=== PATIENT | female | born 1985 | race Two or more races ===

== ENCOUNTER 2020-08-24 13:56 | Outpatient (REF) | payer OTHER, SELFPAY | END 2020-08-24 13:57 | disposition home or self-care (01) | LOC: HO.LAB 13:56 | PROVIDERS: Visit Provider Internal Medicine | DX: Z20.822 Contact with and (suspected) exposure to COVID-19 (principal) | CPT/HCPCS: 36415; C9803; U0003; U0005 ==

== ENCOUNTER 2020-09-02 07:01 | Outpatient (REF) | payer OTHER, SELFPAY ==
[2020-09-02 07:44] LABS: Eos%MD 2.1 %; Hematocrit 33.4 % (37-47); Hemoglobin 9.9 g/dl (12.0-16.0); IG%MD 0.4 %; Lymph%MD 38.1 %; Mean Corpuscular HGB Conc 29.6 g/dl (31.0-35.0); Mean Corpuscular Hemoglobin 22.8 pg (27.0-33.0); Mean Corpuscular Volume 76.8 fL (80-98); Mean Platelet Volume 10.4 fL (9.4-12.3); Neut%MD 48.4 %; Platelet Count 421 X10*3/uL (160-400); Red Blood Count 4.35 X10*6/uL (4.20-5.50); Red Cell Distribution Width 15.9 % (11.0-16.0); White Blood Count 5.2 X10*3/uL (4.8-10.8)
[2020-09-02 08:06] LABS: Alanine Aminotransferase 20 U/L (0-31); Albumin Level 4.1 g/dL (3.5-5.0); Alkaline Phosphatase 66 U/L (39-117); Anion Gap 10 (12-20); Aspartate Amino Transferase 18 U/L (5-31); Bilirubin Total 0.7 mg/dL (0.0-1.0); Blood Urea Nitrogen 13 mg/dL (9-16); Calcium 9.1 mg/dL (8.4-10.2); Carbon Dioxide 28 mmol/L (22-29); Chloride 105 mmol/L (96-108); Cholesterol 224 mg/dL; Estimated Glomerular Filt Rate > 60; Glucose Fasting 102 mg/dL (60-99); HDL Cholesterol 52 mg/dL; Iron 20 mcg/dL (30-160); LDL Cholesterol Calculated 146 mg/dl; Percent Iron Saturation 4 % (15-50); Potassium 4.4 mmol/L (3.3-5.1); Sodium 139 mmol/L (135-145); Total Iron Binding Capacity 454 mcg/dL (228-428); Total Protein 7.5 g/dL (6.5-8.0); Triglycerides 130 mg/dL; Unsaturated Iron Binding 434 ug/dL
[2020-09-02 08:35] LABS: Band Neutrophils Percent 0 % (3-5); Basophils Abs Manual 0.1 X10*3/uL (0.0-0.3); Basophils Percent Manual 1 % (0-1); Eosinophils Absolute Manual 0.2 X10*3/UL (0.0-0.8); Eosinophils Percent Manual 3 % (0-4); Lymphocytes Absolute Manual 1.8 X10*3/uL (0.6-4.8); Lymphocytes Percent Manual 34 % (20-40); Monocytes Absolute Manual 0.3 X10*3/uL (0.0-1.2); Monocytes Percent Manual 6 % (2-11); Neutrophils Absolute Manual 2.9 X10*3/uL (2.2-7.9); Neutrophils Percent Manual 56 % (45-73)
[2020-09-02 08:37] LABS: Microcytosis 2+; RBC Morphology NOTED
[2020-09-02 08:38] LABS: Hypochromasia 1+; Platelet Estimate INCREASED (NORMAL); Platelet Morphology Comment NORMAL
[2020-09-07 13:01] LABS: Vitamin D 25-OH, D2 9 ng/mL; Vitamin D 25-OH, D3 6 ng/mL; Vitamin D 25-OH, Total 15 ng/mL (30-100)
== END 2020-09-02 07:02 | disposition home or self-care (01) ==
LOC: HO.LAB 07:01
PROVIDERS: PCP Internal Medicine; Visit Provider Internal Medicine
DX: D50.9 Iron deficiency anemia, unspecified (principal); E78.00 Pure hypercholesterolemia, unspecified; E55.9 Vitamin D deficiency, unspecified
CPT/HCPCS: 36415; 80053; 80061; 82306; 83540; 85007; 85027

== ENCOUNTER 2020-11-18 13:18 | Outpatient (REF) | payer OTHER, SELFPAY ==
--- NOTE | ~2020-11-18 | XR_ITS ---
EXAMINATION: XR KNEE, RIGHT CLINICAL INFORMATION: Pain. COMPARISON: None TECHNIQUE: AP, lateral and sunrise views of the right knee. FINDINGS: Bones and soft tissues are normal. No fracture or joint effusion. Alignment is anatomic. Joint spaces are well maintained. A small enthesophyte is seen arising from the upper pole of the patella. No abnormal soft tissue calcification. XR/XR knee RT 3V IMPRESSION: Normal right knee. EXAMINATION: XR KNEE, LEFT CLINICAL INFORMATION: Pain. COMPARISON: None TECHNIQUE: AP, lateral and sunrise views of the left knee. FINDINGS: Bones and soft tissues are normal. No fracture or joint effusion. Alignment is anatomic. Joint spaces are well maintained. A small enthesophyte is seen arising from the upper pole of the patella. No abnormal soft tissue calcification. IMPRESSION: Normal left knee.
--- NOTE | ~2020-11-18 | XR_ITS ---
EXAMINATION: XR KNEE, RIGHT CLINICAL INFORMATION: Pain. COMPARISON: None TECHNIQUE: AP, lateral and sunrise views of the right knee. FINDINGS: Bones and soft tissues are normal. No fracture or joint effusion. Alignment is anatomic. Joint spaces are well maintained. A small enthesophyte is seen arising from the upper pole of the patella. No abnormal soft tissue calcification. XR/XR knee LT 3V IMPRESSION: Normal right knee. EXAMINATION: XR KNEE, LEFT CLINICAL INFORMATION: Pain. COMPARISON: None TECHNIQUE: AP, lateral and sunrise views of the left knee. FINDINGS: Bones and soft tissues are normal. No fracture or joint effusion. Alignment is anatomic. Joint spaces are well maintained. A small enthesophyte is seen arising from the upper pole of the patella. No abnormal soft tissue calcification. IMPRESSION: Normal left knee.
== END 2020-11-18 13:19 | disposition home or self-care (01) ==
LOC: HO.XRAY 13:18
PROVIDERS: PCP Internal Medicine; Visit Provider Student in an Organized Health Care Education/Training Program
DX: M79.7 Fibromyalgia (principal); M25.50 Pain in unspecified joint
CPT/HCPCS: 73562; 99212

== ENCOUNTER 2021-02-25 17:00 | Outpatient (RCR) | payer OTHER, SELFPAY ==
--- NOTE | 2021-01-07 18:50 | MHC.PT.EP ---
[facility] [place] Office [place] Office [place] Office [address] [phone] F: [phone] F: [phone] F: [phone] F: [phone] Physical Therapy Plan of Care Date of Evaluation: Date of Surgery: Diagnosis: B knee pain. Assessment: Pt is a 35 y/o female referred to PT for eval and treat fo B knee pain with presents with L > R knee knee dysfunction resulting in decreased tolerance and ability to perform ambulatory and standing tasks for duration, performing squatting activities and heavy HH chores secondary to decreased hip and knee strength, decreased L knee ROM as well as B genu valgum and genu recurvatum, TTP of medial L knee gait abnormality and pain. Pt is deemed an appropriate candidate to receive skilled PT in order to address her physical limitations to improve her functional ability. Frequency and Duration: The patient will be seen 2 x / wk x 5 wks. Short Term Goals: Initiate HEP. Improve baseline pain with activity to < 4/10; initial 6/10. Longterm Goals: Pt will report no difficulty standing 1 hour. Improve L knee Extension MMT to > 4+; initial 4/5. I with HEP. Treatment Plan: Modalities to reduce pain, spasms and effusion. Manual therapy to restore motion and function. Therapeutic exercise to improve strength and flexibility. Neuromuscular re-education for posture and balance. Therapeutic activities to return to functional activities of daily living. Electronically signed by: Renard Bateman PT. Please sign and return to therapist. Thank you for your referral.
--- NOTE | 2021-03-15 08:29 | MHC.PT.DC ---
[facility] [place] Office [place] Office [place] Office [address] Spike Almazan [address] [phone] F: [phone] F: [phone] F: [phone] F: [phone] Physical Therapy Discharge Report Diagnosis: B knee pain. Date of Surgery: Date of Evaluation: 01/07/21 Date of Discharge: 03/15/21 Treatments to Date: 8 Cancellations to Date: No Shows to Date: Discharge Status: Patient Elected to Stop Discharge Summary: pt participated in therapy though had poor home compliance and poor work modification. pt still persists with pain. pt elected to stop. Electronically signed by: Renard Bateman PT Please sign and return to therapist. Thank you for your referral.
== END 2021-03-15 08:35 | disposition home or self-care (01) ==
LOC: HO.PTCHIC 17:00
PROVIDERS: PCP Internal Medicine; Visit Provider Student in an Organized Health Care Education/Training Program
DX: M25.50 Pain in unspecified joint (principal)
CPT/HCPCS: 97110; 97140; 97161

== ENCOUNTER 2021-03-10 08:20 | Emergency (ER) | payer OTHER, SELFPAY ==
--- NOTE | ~2021-03-10 | XR_ITS ---
EXAMINATION: XR CHEST CLINICAL INFORMATION: Dyspnea COMPARISON: None TECHNIQUE: Frontal view of the chest was obtained. FINDINGS: No significant abnormality is noted involving the heart, lungs, mediastinum, bony thorax or soft tissues. XR/XR chest 1V IMPRESSION: Unremarkable examination.
[2021-03-10 08:31] VITALS: BP 107/65; PULSE 81; RESP 14; O2SAT 100; BMI 39.7
--- NOTE | 2021-03-10 09:05 | ECG_ITS ---
Test Reason : CP Blood Pressure : / mmHG Vent. Rate : 072 BPM Atrial Rate : 072 BPM P-R Int : 124 ms QRS Dur : 076 ms QT Int : 394 ms P-R-T Axes : 020 034 006 degrees QTc Int : 431 ms Normal sinus rhythm Normal ECG No previous ECGs available Referred By: Mansi Marquis Electronically Signed By:TIFFANIE CHI
--- NOTE | 2021-03-10 09:06 | ED_ITS ---
HPI - Chest Pain General Chief Complaint: Chest Pain Stated Complaint: chest pain Time Seen by Provider: 03/10/21 09:05 Source: patient Mode of arrival: ambulatory Limitations: no limitations History of Present Illness MD complaint: chest heaviness Onset (ago): day(s) (2) Timing of current episode: constant Prior episodes: Yes Onset: during rest Pain location: substernal Pain radiation: none Severity: moderate Quality: heaviness Relieving factors: nothing Exacerbating factors: palpation Associated symptoms: dyspnea Treatment prior to arrival: none Related Data Home Medications Medication Instructions Recorded Confirmed ferrous sulfate 325 mg (65 mg 325 mg PO DAILY 04/02/20 09/07/20 iron) tablet ibuprofen 800 mg tablet 800 mg PO Q8H 04/02/20 09/07/20 meclizine 25 mg tablet mg PO 04/02/20 09/07/20 Previous Rx's Medication Instructions Recorded ergocalciferol (vitamin D2) 1,250 1,250 mcg PO QWEEK 30 Days #5 cap 09/07/20 mcg (50,000 unit) capsule gabapentin 100 mg capsule 100 mg PO BEDTIME #30 cap 11/18/20 cyclobenzaprine 10 mg tablet 10 mg PO TID PRN #14 tab 03/10/21 ferrous sulfate 325 mg (65 mg 325 mg PO DAILY #30 tab 03/10/21 iron) tablet Allergies Allergy/AdvReac Type Severity Reaction Status Date / Time No Known Allergies Allergy Verified 11/18/20 13:23 [No Known Allergies*] Review of Systems Review of Systems: Constitutional : No Weight loss, No Fever, No Chills ENT/Mouth : No sore throat, No Rhinorrhea Eyes: No Eye Pain, No Swelling Cardiovascular : pos Chest Pain, pos SOB, no Dyspnea on Exertion, No Orthopnea, No Edema, No Palpitations Respiratory : No Cough, No Sputum Gastrointestinal : no Nausea, No Vomiting, No Diarrhea, No abdominal Pain, No Hematochezia, No Melena Genitourinary : No Dysuria, No Urinary Frequency Musculoskeletal : No joint pain, No Myalgias, No Joint Swelling Skin : No Skin Lesions, No rash Neuro : No Weakness, No Numbness, No Dizziness, No Headache Psych : No Anxiety/Panic, No Depression Heme/Lymph: No Bruising, No Lymphadenopathy Endocrine : No Polyuria, No Polydipsia All other systems reviewed and are negative [facility] Past Medical History Attestation statement: The following information was validated with the patient. Medical History Hypovitaminosis D Iron deficiency anemia Polyarthralgia Pure hypercholesterolemia Vertigo Surgical History History of D&C Hx laparoscopic cholecystectomy Family History Family History Father No problems noted. Mother No problems noted. Maternal Grandmother Diabetes Maternal Grandfather Stomach cancer Maternal Uncle Renal cancer Social History Social History (Updated 03/10/21 @ 09:35 by Mansi Marquis DO) Patient Tobacco Use Status: Never used Tobacco Use of substances other than those prescribed or required for medical reasons: No Advance Directives: No Advance Directives Information Provided: No Patient : No Physical Exam Vital Signs: Vital Signs: Last Vital Signs Pulse 81 03/10/21 08:31 Resp 14 03/10/21 08:31 BP 107/65 03/10/21 08:31 Pulse Ox 100 03/10/21 08:31 Body Mass Index 39.7 Appearance: Alert. Oriented X3. No acute distress. Eyes: Pupils equal, round and reactive to light. ENT: Pharynx normal. Neck: Normal inspection. Neck supple. CVS: Normal heart rate and rhythm. Pulses normal. Chest: ttp along costochondral border Respiratory: No respiratory distress. Breath sounds normal. Abdomen: Soft and nontender. Skin: Skin warm and dry. Normal skin color. Normal skin turgor. Extremities: No lower extremity edema. No calf ttp Neuro: Oriented X 3. No motor deficit. No sensory deficit. Course Course Course Narrative: EKG, troponin negative, no acute findings likely CWP stable for DC chronic anemia will encourage Fe intake no need for transfusion, VS stable MDM - Chest Pain MDM Narrative Medical decision making narrative: 35 yo female with anemia here with chest pain that is reproduceable x 2 days, no ACS risk factors, PERC negative. Will obtain EKG, troponin x 1, COVID swab. Suspect MSK pain dispo per results and findings. Lab Data Result diagrams: 03/10/21 09:45 03/10/21 09:45 Labs: Lab Results 09/15/21 09/15/21 09/15/21 Range/Units 09:42 09:45 09:45 WBC 4.4 L (4.8-10.8) X10*3/uL RBC 3.61 L (4.20-5.50) X10*6/uL Hgb 8.2 L (12.0-16.0) g/dl Hct 27.9 L (37-47) % MCV 77.3 L (80-98) fL MCH 22.7 L (27.0-33.0) pg MCHC 29.4 L (31.0-35.0) g/dl RDW 16.4 H (11.0-16.0) % Plt Count 363 (160-400) X10*3/uL MPV 9.6 (9.4-12.3) fL Immature Gran % (Auto) 0.2 (0.0-0.4) % Neut % (Auto) 52.3 (45-73) % Lymph % (Auto) 35.4 (20-40) % [place] % (Auto) 8.7 (2-11) % Eos % (Auto) 2.3 (0-4) % Baso % (Auto) 1.1 (0-2) % Lymph # (Auto) 1.6 (1.2-4.9) X10*3/uL [place] # (Auto) 0.4 (0.1-1.2) X10*3/uL Eos # (Auto) 0.1 (0.0-0.4) X10*3/uL Baso # (Auto) 0.1 (0.0-0.2) X10*3/uL Abs Immat Gran (auto) 0.01 (0.00-0.03) X10*3/uL Absolute Neuts (auto) 2.3 (2.0-8.3) X10*3/uL Absolute Nucleated RBC 0.000 (0.0-0.012) X10*3/uL Nucleated RBC % (auto) 0.0 (0.0-0.2) /100WBC Sodium 139 (135-145) mmol/L Potassium 4.3 (3.3-5.1) mmol/L Chloride 106 (96-108) mmol/L Carbon Dioxide 28 (22-29) mmol/L Anion Gap 9 L (12-20) BUN 10 (9-16) mg/dL Creatinine 0.77 (0.5-1.4) mg/dL Estim Creat Clear Calc 99.2 Estimated GFR > 60 Random Glucose 115 (60-115) mg/dL Calcium 9.3 (8.4-10.2) mg/dL Magnesium 1.9 (1.6-2.6) mg/dL Total Bilirubin 0.7 (0.0-1.0) mg/dL Direct Bilirubin 0.2 (0.0-0.5) mg/dL AST 14 (5-31) U/L ALT 13 (0-31) U/L Alkaline Phosphatase 57 (39-117) U/L Total Protein 7.0 (6.5-8.0) g/dL Albumin 3.9 (3.5-5.0) g/dL Lipase 18 (8-78) U/L COVID-19 (CELENA) Negative (Negative) COVID-19 Clin Com See Note ECG Data ECG #1: Attestation: I personally reviewed and interpreted this ECG as follows: ECG interpretation date: 03/10/21 ECG interpretation time: 09:06 Interpretation: Rate: 72 Rhythm: NSR [place]: normal Normal P waves. Normal YUN. Normal QRS complex. ST T wave : normal no BRANDI qTC: normal prior studies: no acute ischemia The study has been interpreted contemporaneously by me. . Discharge Plan Discharge Clinical Impression: Atypical chest pain Iron deficiency anemia Qualifiers: Iron deficiency anemia type: inadequate dietary iron intake Qualified Code(s): D50.8 - Other iron deficiency anemias Patient Disposition: Home, Self-Care Instructions: Iron Rich Diet (ED), Iron Deficiency Anemia (ED), Chest Wall Pain (ED) Additional Instructions: return to ED for any worsening symptoms or concerns COVID NEGATIVE Prescriptions: New cyclobenzaprine 10 mg tablet 10 mg PO TID PRN (Reason: muscle spasm) Qty: 14 RF: 0 ferrous sulfate 325 mg (65 mg iron) tablet 325 mg PO DAILY Qty: 30 RF: 0 No Action ergocalciferol (vitamin D2) 1,250 mcg (50,000 unit) capsule 1,250 mcg PO QWEEK 30 Days Qty: 5 RF: 4 meclizine 25 mg tablet PO RF: 0 ibuprofen 800 mg tablet 800 mg PO Q8H RF: 0 ferrous sulfate 325 mg (65 mg iron) tablet 325 mg PO DAILY RF: 0 gabapentin 100 mg capsule 100 mg PO BEDTIME Qty: 30 RF: 1 Referrals: Carri Michaels MD [Primary Care Provider] - 2 days (REPEAT BLOOD WORK MONITOR ANEMIA) Stand Alone Forms: Work/School Release Print Language: Sammarinese
[2021-03-10 09:48] LABS: MANUAL DIFF FLAG NO
[2021-03-10 09:55] LABS: Basophils Absolute Auto 0.1 X10*3/uL (0.0-0.2); Basophils Percent Auto 1.1 % (0-2); Eosinophils Absolute Auto 0.1 X10*3/uL (0.0-0.4); Eosinophils Percent Auto 2.3 % (0-4); Hematocrit 27.9 % (37-47); Hemoglobin 8.2 g/dl (12.0-16.0); Imm Gran Abs Auto 0.01 X10*3/uL (0.00-0.03); Imm Gran Pct Auto 0.2 % (0.0-0.4); Lymphocytes Absolute Auto 1.6 X10*3/uL (1.2-4.9); Lymphocytes Percent Auto 35.4 % (20-40); Mean Corpuscular HGB Conc 29.4 g/dl (31.0-35.0); Mean Corpuscular Hemoglobin 22.7 pg (27.0-33.0); Mean Corpuscular Volume 77.3 fL (80-98); Mean Platelet Volume 9.6 fL (9.4-12.3); Monocytes Absolute Auto 0.4 X10*3/uL (0.1-1.2); Monocytes Percent Auto 8.7 % (2-11); Neutrophils Absolute Auto 2.3 X10*3/uL (2.0-8.3); Neutrophils Percent Auto 52.3 % (45-73); Platelet Count 363 X10*3/uL (160-400); Red Blood Count 3.61 X10*6/uL (4.20-5.50); Red Cell Distribution Width 16.4 % (11.0-16.0); White Blood Count 4.4 X10*3/uL (4.8-10.8)
[2021-03-10 10:07] LABS: COVID-19 Test Negative (Negative); IDNOW Serial# 9DD0AD1C
[2021-03-10 10:10] LABS: Alanine Aminotransferase 13 U/L (0-31); Albumin Level 3.9 g/dL (3.5-5.0); Alkaline Phosphatase 57 U/L (39-117); Anion Gap 9 (12-20); Aspartate Amino Transferase 14 U/L (5-31); Bilirubin Direct 0.2 mg/dL (0.0-0.5); Bilirubin Total 0.7 mg/dL (0.0-1.0); Blood Urea Nitrogen 10 mg/dL (9-16); Calcium 9.3 mg/dL (8.4-10.2); Carbon Dioxide 28 mmol/L (22-29); Chloride 106 mmol/L (96-108); Creatinine Clr Calc Pharmacy 99.2; Estimated Glomerular Filt Rate > 60; Glucose Random 115 mg/dL (60-115); Lipase 18 U/L (8-78); Magnesium 1.9 mg/dL (1.6-2.6); Potassium 4.3 mmol/L (3.3-5.1); Sodium 139 mmol/L (135-145)
[2021-03-10 10:44] LABS: Troponin-I High Sensitivity < 3.5 ng/L (<3.5-17.0)
== END 2021-03-10 11:02 | disposition home or self-care (01) ==
PROVIDERS: Emergency Provider Emergency Medicine; PCP Internal Medicine
DX: R07.89 Other chest pain (principal); D50.8 Other iron deficiency anemias; Z79.899 Other long term (current) drug therapy; Z20.822 Contact with and (suspected) exposure to COVID-19
CPT/HCPCS: 36415; 71045; 80048; 80076; 83690; 83735; 84484; 85025; 87635; 93005; 99283

== ENCOUNTER 2021-06-10 14:02 | Outpatient (REF) | payer OTHER, SELFPAY | END 2021-06-10 14:03 | disposition home or self-care (01) | LOC: HO.LAB 14:02 | PROVIDERS: Visit Provider Internal Medicine | DX: Z20.822 Contact with and (suspected) exposure to COVID-19 (principal) | CPT/HCPCS: C9803; U0003; U0005 ==

== ENCOUNTER 2021-09-30 08:53 | Outpatient (REF) | payer OTHER, SELFPAY ==
[2021-10-01 03:58] LABS: CT PCR NOT DETECTED (Not Detect.); NG PCR NOT DETECTED (Not Detect.)
[2021-10-01 10:59] LABS: BV Int Neg Control Negative (Negative); BV Int Pos Control Positive (Positive)
== END 2021-09-30 08:54 | disposition home or self-care (01) ==
LOC: HO.LAB 08:53
PROVIDERS: Visit Provider Advanced Practice Midwife
DX: Z01.411 Encounter for gynecological examination (general) (routine) with abnormal findings (principal); E66.01 Morbid (severe) obesity due to excess calories; Z68.41 Body mass index [BMI] 40.0-44.9, adult; N93.9 Abnormal uterine and vaginal bleeding, unspecified; Z87.42 Personal history of other diseases of the female genital tract; Z20.2 Contact with and (suspected) exposure to infections with a predominantly sexual mode of transmission
CPT/HCPCS: 81025; 87480; 87491; 87510; 87591; 87660; 99202

== ENCOUNTER → 2021-10-04 08:04 | Outpatient (REF) | payer OTHER, SELFPAY ==
--- NOTE | 2021-10-04 08:12 | ECG_ITS ---
Test Reason : CK RHYTHM Blood Pressure : / mmHG Vent. Rate : 067 BPM Atrial Rate : 067 BPM P-R Int : 122 ms QRS Dur : 076 ms QT Int : 418 ms P-R-T Axes : 003 051 020 degrees QTc Int : 441 ms Normal sinus rhythm Normal ECG When compared with ECG of 10-MAR-2021 08:30, No significant change was found Referred By: Carri Whitfield Electronically Signed By:Pedro Pang
[2021-10-04 09:42] LABS: Hematocrit 31.5 % (37.0-47.0); Hemoglobin 9.4 g/dl (12.0-16.0); Mean Corpuscular HGB Conc 29.8 g/dl (31.0-35.0); Mean Corpuscular Hemoglobin 24.6 pg (27.0-33.0); Mean Corpuscular Volume 82.5 fL (80.0-98.0); Mean Platelet Volume 10.4 fL (9.4-12.3); Platelet Count 403 X10*3/uL (160-400); Red Blood Count 3.82 X10*6/uL (4.20-5.50); Red Cell Distribution Width 18.1 % (11.0-16.0); White Blood Count 5.3 X10*3/uL (4.8-10.8)
[2021-10-04 09:54] LABS: Estimated Average Glucose 100 mg/dL; Hemoglobin A1c % 5.1 %
[2021-10-04 10:08] LABS: Alanine Aminotransferase 19 U/L (0-31); Alkaline Phosphatase 58 U/L (39-117); Anion Gap 12 (12-20); Aspartate Amino Transferase 15 U/L (5-31); Bilirubin Total 0.4 mg/dL (0.0-1.0); Blood Urea Nitrogen 13 mg/dL (9-16); Calcium 9.2 mg/dL (8.4-10.2); Carbon Dioxide 25 mmol/L (22-29); Chloride 107 mmol/L (96-108); Cholesterol 217 mg/dL; Estimated Glomerular Filt Rate > 60; Glucose Fasting 99 mg/dL (60-99); HDL Cholesterol 44 mg/dL; Iron 20 mcg/dL (30-160); LDL Cholesterol Calculated 153 mg/dl; Percent Iron Saturation 5 % (15-50); Potassium 4.5 mmol/L (3.3-5.1); Sodium 139 mmol/L (135-145); Total Iron Binding Capacity 426 mcg/dL (228-428); Total Protein 7.3 g/dL (6.5-8.0); Triglycerides 103 mg/dL; Unsaturated Iron Binding 406 ug/dL
[2021-10-04 10:23] LABS: TSH reflex Free T4 2.29 uIU/mL (0.32-4.0)
[2021-10-04 10:32] LABS: Vitamin D 25-OH Total 13.2 ng/mL (>30)
[2021-10-05 22:46] LABS: Follicle Stimulating Hormone 5.7 mIU/mL
[2021-10-05 23:37] LABS: DHEA Sulfate 45 mcg/dL (19-237)
[2021-10-09 20:30] LABS: Testosterone, Free 4.4 pg/mL (0.1-6.4); Testosterone, Total 26 ng/dL (2-45)
== END ==
LOC: HO.CARD 08:04
PROVIDERS: Absent Provider Internal Medicine; PCP Internal Medicine; Visit Provider Advanced Practice Midwife
DX: Z00.00 Encounter for general adult medical examination without abnormal findings (principal); R07.89 Other chest pain; N93.9 Abnormal uterine and vaginal bleeding, unspecified; D64.9 Anemia, unspecified; E78.5 Hyperlipidemia, unspecified; E55.9 Vitamin D deficiency, unspecified; E66.01 Morbid (severe) obesity due to excess calories; Z68.41 Body mass index [BMI] 40.0-44.9, adult
CPT/HCPCS: 36415; 80053; 80061; 82306; 82627; 83001; 83036; 83540; 84402; 84403; 84443; 85027; 93005

== ENCOUNTER 2021-10-08 14:00 | Outpatient (REF) | payer OTHER, SELFPAY ==
--- NOTE | ~2021-10-08 | US_ITS ---
EXAM: Pelvic Ultrasound CLINICAL INDICATION: Abnormal uterine bleeding COMPARISON: Pelvic ultrasound 02/10/2020 TECHNIQUE: The pelvis was evaluated using transabdominal and transvaginal imaging. FINDINGS: The uterus measures 9.4 x 6.2 x 7.0 cm in longitudinal by AP by transverse dimension. The endometrial stripe is not thickened and measures 0.8 cm. The cervix measures approximately 3.3 cm in length. Small nabothian cysts are noted within the cervix as is a small amount of fluid within the endocervical canal. The left ovary measures approximately 2.0 x 2.1 x 2.1 cm and is normal. The right ovary measures approximately 3.5 x 2.1 x 2.0 cm and is also normal. There are no abnormal adnexal masses. There is no free fluid in the pelvis. US/US pelvic and transvaginal IMPRESSION: Unremarkable sonographic imaging of the pelvis.
== END 2021-10-08 14:01 | disposition home or self-care (01) ==
LOC: HO.HMGCX 14:00
PROVIDERS: PCP Internal Medicine; Visit Provider Advanced Practice Midwife
DX: N93.9 Abnormal uterine and vaginal bleeding, unspecified (principal); Z87.42 Personal history of other diseases of the female genital tract
CPT/HCPCS: 76830; 76856

== ENCOUNTER → 2021-10-19 11:11 | Outpatient (BNVA) | payer OTHER, SELFPAY | PROVIDERS: Visit Provider Advanced Practice Midwife | DX: Z13.89 Encounter for screening for other disorder (principal) ==

== ENCOUNTER 2021-11-04 14:44 | Outpatient (REF) | payer OTHER, SELFPAY ==
[2021-11-05 03:19] LABS: CT PCR NOT DETECTED (Not Detect.); NG PCR NOT DETECTED (Not Detect.)
[2021-11-05 10:56] LABS: BV Int Neg Control Negative (Negative); BV Int Pos Control Positive (Positive)
[2021-11-07 12:27] LABS: HPV mRNA E6/E7 rflx Not Detected (Not Detected)
== END 2021-11-04 14:45 | disposition home or self-care (01) ==
LOC: HO.LAB 14:44
PROVIDERS: Visit Provider Advanced Practice Midwife
DX: Z01.411 Encounter for gynecological examination (general) (routine) with abnormal findings (principal); Z11.51 Encounter for screening for human papillomavirus (HPV); Z20.2 Contact with and (suspected) exposure to infections with a predominantly sexual mode of transmission; N93.9 Abnormal uterine and vaginal bleeding, unspecified; D50.8 Other iron deficiency anemias; E66.01 Morbid (severe) obesity due to excess calories; Z87.42 Personal history of other diseases of the female genital tract; Z71.3 Dietary counseling and surveillance
CPT/HCPCS: 87480; 87491; 87510; 87591; 87624; 87660; 88142

== ENCOUNTER 2022-07-28 13:10 | Outpatient (REF) | payer OTHER, SELFPAY ==
--- NOTE | ~2022-07-28 | US_ITS ---
EXAMINATION: US SOFT TISSUE NECK CLINICAL INFORMATION: Generalized enlarged lymph nodes COMPARISON: None TECHNIQUE: Ultrasound of the neck soft tissues is performed with high- frequency kohli-scale imaging and color Doppler. FINDINGS: There are a few scattered lymph nodes. RIGHT NECK: 1. Level 3 lymph node measures 0.85 x 0.39 x 0.43 cm.. It has abnormal architecture with absent hilum. 2. Level Ib lymph node measures 0.91 x 0.56 x 0.90). It has normal architecture. LEFT NECK: 1. Level Ib lymph node measures 1.7 x 0.72 x 0.98 seen. It has normal architecture. 2. Level 1E lymph node measures 1.2 x 0.70 x 1.3 cm. It has normal architecture. Unremarkable. Incidental note is made of a small right thyroid nodule measuring 0.8 x 0.8 x 0.7 cm. It is well demarcated slightly heterogeneous and without echogenic calcification. US/US soft tiss head and/or neck IMPRESSION: 1. Subcentimeter lymph node, right neck level 3, with absent hilum. Recommend follow-up. The rest of lymph nodes visualized are unremarkable. 2. Incidental finding of right thyroid nodule measuring subcentimeter. 3.If clinically indicated further evaluation of the neck soft tissues and nodes may be performed with CT soft tissue neck with intravenous contrast.
== END 2022-07-28 13:11 | disposition home or self-care (01) ==
LOC: HO.HMGCX 13:10
PROVIDERS: PCP Internal Medicine; Visit Provider Internal Medicine
DX: R59.1 Generalized enlarged lymph nodes (principal)
CPT/HCPCS: 76536

== ENCOUNTER 2022-08-11 07:36 | Outpatient (REF) | payer OTHER, SELFPAY ==
[2022-08-11 07:43] LABS: MANUAL DIFF FLAG NO
[2022-08-11 07:59] LABS: Basophils Percent Auto 0.7 % (0-2); Eosinophils Absolute Auto 0.1 X10*3/uL (0.0-0.4); Hematocrit 33.7 % (37.0-47.0); Hemoglobin 10.1 g/dl (12.0-16.0); Imm Gran Abs Auto 0.01 X10*3/uL (0.00-0.03); Imm Gran Pct Auto 0.2 % (0.0-0.4); Lymphocytes Absolute Auto 1.9 X10*3/uL (1.2-4.9); Lymphocytes Percent Auto 35.1 % (20-40); Mean Corpuscular Hemoglobin 23.8 pg (27.0-33.0); Mean Corpuscular Volume 79.5 fL (80.0-98.0); Mean Platelet Volume 9.8 fL (9.4-12.3); Monocytes Absolute Auto 0.5 X10*3/uL (0.1-1.2); Monocytes Percent Auto 8.7 % (2-11); Neutrophils Absolute Auto 2.9 x10*3/uL (2.0-8.3); Neutrophils Percent Auto 53.3 % (45-73); Platelet Count 368 X10*3/uL (160-400); Red Blood Count 4.24 X10*6/uL (4.20-5.50); Red Cell Distribution Width 17.9 % (11.0-16.0); White Blood Count 5.4 X10*3/uL (4.8-10.8)
[2022-08-11 08:34] LABS: Alanine Aminotransferase 19 U/L (0-31); Albumin Level 3.9 g/dL (3.5-5.0); Alkaline Phosphatase 63 U/L (39-117); Anion Gap 13 (12-20); Aspartate Amino Transferase 14 U/L (5-31); Bilirubin Total 0.9 mg/dL (0.0-1.0); Blood Urea Nitrogen 11 mg/dL (9-16); Calcium 9.2 mg/dL (8.4-10.2); Carbon Dioxide 25 mmol/L (22-29); Chloride 107 mmol/L (96-108); Cholesterol 228 mg/dL; Estimated Glomerular Filt Rate > 60; Glucose Fasting 103 mg/dL (60-99); HDL Cholesterol 47 mg/dL; Iron 23 mcg/dL (30-160); LDL Cholesterol Calculated 155 mg/dl; Percent Iron Saturation 6 % (15-50); Potassium 4.4 mmol/L (3.3-5.1); Sodium 141 mmol/L (135-145); Total Iron Binding Capacity 370 mcg/dL (228-428); Total Protein 7.1 g/dL (6.5-8.0); Triglycerides 134 mg/dL; Unsaturated Iron Binding 347 ug/dL
[2022-08-11 08:41] LABS: Thyroid Stimulating Hormone 1.52 uIU/mL (0.32-4.0); Vitamin D 25-OH Total 8.8 ng/mL (>30)
== END 2022-08-11 07:37 | disposition home or self-care (01) ==
LOC: HO.LAB 07:36
PROVIDERS: PCP Internal Medicine; Visit Provider Internal Medicine
DX: Z00.00 Encounter for general adult medical examination without abnormal findings (principal); E66.01 Morbid (severe) obesity due to excess calories; D64.9 Anemia, unspecified; E78.5 Hyperlipidemia, unspecified; E55.9 Vitamin D deficiency, unspecified
CPT/HCPCS: 36415; 80053; 80061; 82306; 83540; 84443; 85025

== ENCOUNTER → 2022-08-25 14:30 | Outpatient (BNVA) | payer OTHER, SELFPAY | PROVIDERS: PCP Internal Medicine; Referring Provider Internal Medicine; Visit Provider Surgery | DX: R59.1 Generalized enlarged lymph nodes (principal) | CPT/HCPCS: 99202 ==

== ENCOUNTER 2022-08-30 10:00 | Outpatient (REF) | payer OTHER, SELFPAY ==
--- NOTE | ~2022-08-30 | CT_ITS ---
EXAMINATION: CT SOFT TISSUE NECK WITH CONTRAST CLINICAL INFORMATION: Generalized enlargement of the lymph nodes. COMPARISON: Soft tissues neck ultrasound 07/28/2022. TECHNIQUE: Following the intravenous administration of 60 mL of Omnipaque 350 intravenous contrast, helical imaging was performed in the axial plane with generation of coronal and sagittal reformatted images. This CT examination was performed using dose optimization techniques as appropriate, variously including the following: *Automated exposure control *Adjustment of mA and/or kV according to patient size (this includes techniques or standardized protocols for targeted exams where dose is matched to indication/reason for exam; i.e. extremities or head) *Use of iterative reconstruction technique DLP: 383 mGy-cm FINDINGS: There are no pathologically enlarged cervical lymph nodes. No mediastinal or axillary adenopathy is visualized within the [id number] of this examination. Pharyngeal mucosal spaces are symmetric. Parapharyngeal and retromaxillary fat is preserved. [place] spaces are symmetric. The parotid and submandibular glands are normal. The tongue base and epiglottis are normal. Preepiglottic fat is preserved. Glottic and subglottic airways are unremarkable. The thyroid gland is normal and the remainder of the visualized visceral soft tissues are normal. Lung apices are clear. The aortic arch apex is normal. Origins of the major aortic branches are widely patent. Cervical carotid or vertebral arteries are unremarkable. Internal jugular veins fill symmetrically. There is no acute osseous finding. Specifically no worrisome lytic or blastic osseous lesion. Limited visualization of the intracranial anatomy reveals no abnormal finding. CT/CT soft tissue neck w IV con IMPRESSION: Unremarkable soft tissue neck CT scan. No worrisome soft tissue mass or adenopathy.
[2022-08-30] MEDS: iohexoL 350 MG/ML 100 ML INFUS..BTL IV (10:43)
== END 2022-08-30 10:01 | disposition home or self-care (01) ==
LOC: HO.CT 10:00
PROVIDERS: Visit Provider Internal Medicine
DX: R59.1 Generalized enlarged lymph nodes (principal)
CPT/HCPCS: 70491; Q9967

== ENCOUNTER → 2022-09-06 10:22 | Outpatient (BNVA) | payer OTHER, SELFPAY | PROVIDERS: PCP Internal Medicine; Visit Provider Surgery | DX: R59.1 Generalized enlarged lymph nodes (principal) | CPT/HCPCS: 99212 ==

== ENCOUNTER 2022-09-27 10:26 | Outpatient (REF) | payer OTHER, SELFPAY | END 2022-09-27 10:27 | disposition home or self-care (01) | LOC: HO.HOSX 10:26 | PROVIDERS: Visit Provider Physician Assistant | DX: Z13.89 Encounter for screening for other disorder (principal) ==

== ENCOUNTER → 2022-11-14 14:43 | Outpatient (BNVA) | payer OTHER, SELFPAY | PROVIDERS: PCP Internal Medicine; Visit Provider Nurse Practitioner Family | DX: G43.009 Migraine without aura, not intractable, without status migrainosus (principal); R06.83 Snoring; G47.19 Other hypersomnia; R42 Dizziness and giddiness; Z79.899 Other long term (current) drug therapy | CPT/HCPCS: 99202 ==

== ENCOUNTER 2022-11-15 07:58 | Outpatient (REF) | payer OTHER, SELFPAY ==
--- NOTE | ~2022-11-15 | XR_ITS ---
EXAMINATION: XR HAND, RIGHT CLINICAL INFORMATION: Pain right hand. COMPARISON: None available. TECHNIQUE: PA, lateral, and oblique views of the right hand. FINDINGS: No acute or healing fracture, dislocation, destructive process. No arthropathy. No erosive changes. XR/XR hand RT min 3V IMPRESSION: Unremarkable right hand.
== END 2022-11-15 07:59 | disposition home or self-care (01) ==
LOC: HO.HOSX 07:58
PROVIDERS: Visit Provider Physician Assistant
DX: G56.01 Carpal tunnel syndrome, right upper limb (principal); M79.641 Pain in right hand
CPT/HCPCS: 73130; 99202

== ENCOUNTER 2022-11-15 14:46 | Outpatient (AMB) | payer OTHER, SELFPAY ==
[2022-11-15 14:47] VITALS: BMI 44.6
--- NOTE | 2022-11-15 14:47 | MHC.OFFVIS ---
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 Patient reports ongoing pain for about a year. She states that her pain come from having numbness off and on during the day but its worse at night and in the morning. Having numbness in her ring and middle finger. 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 The patient reports ongoing pain for a year, since 2021. She states her pain and numbness is intermittent through out the day. She claims the pain and numbness increases at night and in the morning. She reports her numbness is in her ring and middle digits. [facility] Medical History Carpal tunnel syndrome Chest wall pain Constipation by delayed colonic transit Food intolerance Hand numbness Hand pain Hypovitaminosis D Iron deficiency anemia Morbid obesity with BMI of 40.0-44.9, adult Physical exam Polyarthralgia Pure hypercholesterolemia Vertigo Surgical History History of D&C Hx laparoscopic cholecystectomy Family History Father No problems noted. Mother No problems noted. Maternal Grandmother Diabetes Maternal Grandfather Stomach cancer Maternal Uncle Renal cancer Social History Housing: House Alcohol intake: never Patient Tobacco Use Status: Never used Tobacco e-Cigarette/Vaping Use: Never Used Second Hand Smoke Exposure: No service: No Current occupational status: employed Current occupational exposures/hazards: No Cognitive needs: No Hearing needs: No Vision needs: No Female Reproductive History Menstrual Age of Menarche: 13 Review of Systems Const All systems reviewed & are unremarkable except as noted in HPI and below Physical Exam Vital Signs: BMI result Body Mass Index 44.6 Const General: cooperative, healthy appearing, comfortable, no acute distress, well developed and alert Orientation/consciousness: patient oriented x3 HEENT Head: Yes normal to inspection, Yes normocephalic and Yes atraumatic Eyes General: appearance normal, both eyes and all related structures Resp Effort & Inspection: normal respiratory effort and able to speak in complete sentences Cardio Rate: regular rate Peripheral pulses: Peripheral pulses 2+ throughout GI Palpation (GI): Soft to palpation Skin General skin exam: no rashes or lesions noted Lesions: no lesions Rashes: no rashes Neuro General: patient oriented x3 Extrem Other: Right hand: Normal to inspection. No ecchymosis, erythema, or edema. Able to perform full finger flexion, extension, abduction, adduction, finger cross, okay sign, and thumbs up without deficit. Able to make a closed fist. Numbness and tingling intermittently in the middle and ring digits. Negative Tinel?s. Negative Phalen?s. Capillary refill is brisk. Radial pulse intact. Assessment & Plan Assessment & Plan (1) Right carpal tunnel syndrome: Code(s): G56.01 - Carpal tunnel syndrome, right upper limb Plan Ms. Ernesto Luevano is a 36-year-old right hand dominant female who presents in the office today, as a new patient, for an evaluation of right hand pain. The patient reports ongoing pain for a year, since 2021. She states her pain and numbness is intermittent through out the day. She claims the pain and numbness increases at night and in the morning. She reports her numbness is in her ring and middle digits. The patient will be referred for an EMG study of the right hand for further evaluation. Follow up will be after the EMG, or sooner if needed. X-rays of the right hand which were obtained while in the office today and were reviewed by me, Graciela Saini PA-C, revealed no acute fracture or dislocation. Orders: Orders XR hand RT min 3V Today M79.643 - Pain in unspecified hand NE electromyogram (EMG) Today G56.01 - Carpal tunnel syndrome, right upper limb Patient Instructions: Scribed for Graciela Saini PA-C by Abena Whiting neuropsychology medical consultant, on 11/15/2022 at 2:52 pm, EST. Your attestation Coding Level of Care Code New Pt Level 4 (13681) Diagnoses Right carpal tunnel syndrome G56.01
== END 2022-11-15 15:09 | disposition home or self-care (01) ==
LOC: HO.HOS 14:46
PROVIDERS: PCP Internal Medicine; Visit Provider Physician Assistant
DX: M79.643 Pain in unspecified hand (principal)
CPT/HCPCS: 99204

== ENCOUNTER → 2022-12-20 20:30 | Outpatient (REF) | payer OTHER, SELFPAY | LOC: HO.SL 20:30 | PROVIDERS: PCP Internal Medicine; Visit Provider Nurse Practitioner Family | DX: G47.19 Other hypersomnia (principal); E66.01 Morbid (severe) obesity due to excess calories; G47.9 Sleep disorder, unspecified; R06.83 Snoring; Z68.41 Body mass index [BMI] 40.0-44.9, adult | CPT/HCPCS: 95810 ==

== ENCOUNTER 2022-12-29 09:47 | Outpatient (REF) | payer OTHER, SELFPAY | END 2022-12-29 09:48 | disposition home or self-care (01) | LOC: HO.NEURO 09:47 | PROVIDERS: PCP Internal Medicine; Visit Provider Physician Assistant | DX: G56.01 Carpal tunnel syndrome, right upper limb (principal) | CPT/HCPCS: 95886; 95909 ==

== ENCOUNTER 2022-12-30 14:13 | Outpatient (REF) | payer OTHER, SELFPAY | END 2022-12-30 14:14 | disposition home or self-care (01) | LOC: HO.MRI 14:13 | PROVIDERS: PCP Internal Medicine; Visit Provider Nurse Practitioner Family | DX: G43.009 Migraine without aura, not intractable, without status migrainosus (principal); R42 Dizziness and giddiness | CPT/HCPCS: 70553; A9585 ==

== ENCOUNTER 2023-01-24 10:24 | Outpatient (AMB) | payer OTHER, SELFPAY ==
[2023-01-24 10:47] VITALS: BMI 42.6
--- NOTE | 2023-01-24 10:47 | MHC.OFFVIS ---
Intake Vital Signs 01/24/23 10:47 Height 4 ft 11 in Weight 211 lb BMI 42.6 Intake Visit Reasons: Ov- discuss sx right hand Intake Note: Katie 37 yr old right hand dominant female presents today for her right hand EMG review. States she has ongoing pain for about a year. She states that her pain comes from having numbness off and on during the day but its worse at night and in the morning. Numbness in her ring and middle finger. Allergies No Known Allergies [No Known Allergies*] Allergy (Verified 01/24/23 10:48) HPI Ov- discuss sx right hand HPI Details Katie is a 37 year old right hand dominant woman who presents for a NCS review of her right hand numbness. She complains of numbness & pain in the median nerve distribution of the right hand. Her numbness is worse in the middle & ring fingers. Her symptoms are intermittent, but daily, worse at night. 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 She has a hx of Fibromyalgia & polyarthralgia PFSH Medical History Carpal tunnel syndrome Chest wall pain Constipation by delayed colonic transit Food intolerance Hand numbness Hand pain Hypovitaminosis D Iron deficiency anemia Morbid obesity with BMI of 40.0-44.9, adult Physical exam Polyarthralgia Pure hypercholesterolemia Vertigo Surgical History History of D&C Hx laparoscopic cholecystectomy Family History Father No problems noted. Mother No problems noted. Maternal Grandmother Diabetes Maternal Grandfather Stomach cancer Maternal Uncle Renal cancer Social History Housing: House Alcohol intake: never Patient Tobacco Use Status: Never used Tobacco e-Cigarette/Vaping Use: Never Used Second Hand Smoke Exposure: No service: No Current occupational status: employed Current occupational exposures/hazards: No Cognitive needs: No Hearing needs: No Vision needs: No Female Reproductive History Menstrual Age of Menarche: 13 Review of Systems Const All systems reviewed & are unremarkable except as noted in HPI and below Physical Exam Vital Signs: BMI result Body Mass Index 42.6 Const General: cooperative, healthy appearing and no acute distress Orientation/consciousness: patient oriented x3 HEENT Head: Yes normocephalic and Yes atraumatic Eyes EOM: EOMs intact bilaterally Resp Effort & Inspection: normal respiratory effort and able to speak in complete sentences Cardio Jugular venous distension: no JVD Skin General skin exam: turgor normal Rashes: no rashes Neuro General: patient oriented x3 Extrem Other: Evaluation of Right Upper Extremity: The patient is alert, oriented, and in no acute distress Neuro: Median, Ulnar, Radial nerves motor and sensory intact to the tips of all digits No thenar or intrinsic wasting Good APB muscle belly firing and good finger cross Vascular: Cap refill brisk ROM: She can make a fist and extend all her digits Skin: No lacerations or abrasions. General: No Ecchymosis. No Erythema or evidence of infection. Nerve Conduction Study: IMPRESSION:? 1. [id number] right median neuropathy across carpal tunnel. 2. Right Pa-George anastomosis, a normal variant. ? 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 Right Carpal tunnel syndrome, mild-moderate Symptoms intermittent, but daily, worse at night I educated her about this condition I discussed treatment options The patient would like to proceed with surgery The risks and benefits of operative treatment were discussed with the patient and the patient wishes to proceed with surgery. These risks include, but are not limited to risk of damage to blood vessels, nerves, tendons, infection, recurrence, incomplete relief of preoperative symptoms, persistent pain, possible need for further surgery and the risks associated with regional blocks and anesthesia. The plan is to take the patient to the operating room sometime in the next few weeks for the following procedures: 1. Right carpal tunnel release, under local All of the preoperative paperwork including the consent was filled out today. All the patient's questions were answered. The patient understands that they will be contacted by our smelter charger soon to schedule this procedure She denies Diabetes, blood thinners, asthma, heart, lung, kidney issues Scribed for Mala Kapadia MD by Mihai Ramos, medical office technologist, on 01/24/23 at 11:20 AM, EST. Coding Level of Care Code Est Pt Level 4 (01182) Diagnoses Right carpal tunnel syndrome G56.01 Pa-George anastomosis Q07.8 Fibromyalgia M79.7
== END 2023-01-24 11:22 | disposition home or self-care (01) ==
PROVIDERS: PCP Internal Medicine; Visit Provider Orthopaedic Surgery
DX: G56.01 Carpal tunnel syndrome, right upper limb (principal)
CPT/HCPCS: 99214

== ENCOUNTER → 2023-01-24 10:24 | Outpatient (BNVA) | payer OTHER, SELFPAY | PROVIDERS: PCP Internal Medicine; Visit Provider Orthopaedic Surgery | DX: G56.01 Carpal tunnel syndrome, right upper limb (principal); M79.7 Fibromyalgia; Q07.8 Other specified congenital malformations of nervous system | CPT/HCPCS: 99212 ==

== ENCOUNTER 2023-03-02 07:48 | Outpatient (AMB) | payer OTHER, SELFPAY ==
[2023-03-02 07:57] VITALS: BP 118/78; PULSE 77; O2SAT 99; BMI 44.1
--- NOTE | 2023-03-02 07:57 | MHC.OFFVIS ---
Intake Vital Signs 03/02/23 07:57 Height 4 ft 11 in Weight 218 lb 8 oz BMI 44.1 BP 118/78 Blood Pressure Location Rt brachial Position Sitting Pulse 77 Pulse Source Pulse Oximeter Pulse Oximetry (%) 99 Oxygen Delivery Method Room Air Intake Visit Reasons: 3m follow up Migraines - Confirmed Intake Note: Patient presents for 3 month follow up. Patient states My migraines are much better since the last time I saw her. I get headaches once a week if that. Allergies No Known Allergies [No Known Allergies*] Allergy (Verified 03/02/23 08:00) Medication List - Last Reconciled 03/02/23 by BRANDO Joseph ascorbic acid (vitamin C) 250 mg PO BID 30 days cholecalciferol (vitamin D3) 50 mcg PO DAILY 90 days ferrous sulfate 325 mg PO BID 90 days magnesium oxide 400 mg PO BEDTIME 30 days naproxen 500 mg PO BID PRN riboflavin (vitamin B2) 400 mg PO DAILY 30 days sumatriptan succinate 50 - 100 mg orally at onset of headache, may repeat in 2 hrs PRN; max 2 tabs per day or 4 tabs/week (may take with Ibuprofen) 30 days topiramate 50 mg (2 x 25 mg) PO BEDTIME 90 days HPI HPI Comments History of Present Illness Details 37-yr-old female presents for f/u visit. Pt denies any significant interval medical changes. Brain MRI was normal. In-lab PSG showed no evidence of sleep apnea w/ AHI < 3/hr w/ O2 stephanie 91%, however significant PLMS 36/hr and PLMS arousal index 5.4/hr. She does endorse restless legs especially at night- states she moves a lot. Can be restless if sitting during the day, but she is often moving. Sometimes has leg cramps. Denies creepy crawling sensations. She has a h/o anemia- her last ferritin in 2019 was 3L. She has an order for iron 325mg bid- forgets to atke at times- not always taking w/ vit c. She is having much less headaches, now 1 every 1-2 weeks. She feels the topiramate, mag and b2 are helping. She is not needing to use her sumatriptan very often, but tolerates it well. She does note that she continues to have room spinning dizziness when laying down or turning over in bed. 12/30/22, MR/MR head/brain wo/w con IMPRESSION: Normal unenhanced and IV contrast enhanced MRI of the brain with thin section imaging through the internal auditory canals. No evidence of vestibular schwannomas. [facility] Medical History (Updated 03/02/23 @ 12:50 by BRANDO Joseph) Anemia Migraines Migraines Food intolerance Carpal tunnel syndrome Hand pain Physical exam Hand numbness Constipation by delayed colonic transit Chest wall pain Morbid obesity with BMI of 40.0-44.9, adult Polyarthralgia Hypovitaminosis D Pure hypercholesterolemia Iron deficiency anemia Vertigo Surgical History History of D&C Hx laparoscopic cholecystectomy Family History Father No problems noted. Mother No problems noted. Maternal Grandmother Diabetes Maternal Grandfather Stomach cancer Maternal Uncle Renal cancer Social History Housing: House Alcohol intake: never Patient Tobacco Use Status: Never used Tobacco e-Cigarette/Vaping Use: Never Used Second Hand Smoke Exposure: No service: No Current occupational status: employed Current occupational exposures/hazards: No Cognitive needs: No Hearing needs: No Vision needs: No Female Reproductive History Menstrual Age of Menarche: 13 Review of Systems Const All systems reviewed & are unremarkable except as noted in HPI and below Physical Exam Vital Signs: Last Vital Signs Pulse 77 03/02/23 07:57 BP 118/78 03/02/23 07:57 Pulse Ox 99 03/02/23 07:57 Oxygen Delivery Method Room Air 03/02/23 07:57 BMI result Body Mass Index 44.1 Const General: cooperative and no acute distress Orientation/consciousness: patient oriented x3 HEENT Head: Yes normocephalic Resp Effort & Inspection: normal respiratory effort and able to speak in complete sentences Neuro General: patient oriented x3, gait normal and CN's II-XI intact bilaterally Cognition (Neuro): normal cognition Motor exam (neuro): 5/5 motor strength present throughout Psych Appearance: grossly normal Mental Status: mental status grossly normal Speech and movement: Normal speech and movement present Affect: normal affect Attitude: cooperative Thought process: Normal thought process present Thought content: Normal thought content present Insight: Good insight present (Psych) Judgement: Good judgement present (Psych) Assessment & Plan Assessment & Plan (1) Periodic limb movements of sleep: Code(s): G47.61 - Periodic limb movement disorder (2) Peripheral positional vertigo: Code(s): H81.399 - Other peripheral vertigo, unspecified ear (3) Migraine without aura: Code(s): G43.009 - Migraine without aura, not intractable, without status migrainosus (4) Iron deficiency anemia: Code(s): D50.9 - Iron deficiency anemia, unspecified Qualifiers: Iron deficiency anemia type: inadequate dietary iron intake Qualified Code(s): D50.8 - Other iron deficiency anemias Plan Reviewed in-lab PSG results- which did not show sleep apnea, however did show PLMS w/ an arousal index of 5/hr. Pt does endorse symptoms c/w PLMS and to some degree RLS. Pt has a h/o VICTOR HUGO. Will recheck iron/ferritin studies- lab slips given to pt. For PLMS/RLS ferritin target is > 75. Encouraged her to be more complaint w/ ferrous sulfate and take w/ vit c. Reviewed brain MRI- normal. Will refer pt for PT vestibular eval. ? ?For overall headache management: Continue optimizing good self-care, including but not limited to maintaining a healthy diet, adequate fluid intake, adequate sleep, and engaging in regular physical activity. For headache triggers: Track headaches. ? For acute headache treatment: Continue Sumatriptan 100mg tab, 1/2 - 1 tab (50-100mg) at onset of headache, may repeat in 2 hours. Max of 2 tabs (200mg) per 24 hours. May adjunct with OTC Tylenol 650mg q 4 hours, Ibuprofen 600mg q 6 hours, or Naproxen 440mg q 12 hrs prn. Previous acute migraine medication trials: OTC Tylenol and Ibuprofen. Acute migraine medication contraindications: None at this time. ? For headache prevention medication: Continue Riboflavin 400mg qam Continue Magnesium 400mg qhs Continue Topiramate to 50mg qhs. Previous migraine prevention medication trials: Amitriptyline 25mg- ineffective Migraine prevention medication contraindications: None at this time. ? ? Pt to follow-up in 3 months or sooner prn. Orders: Orders Complete Blood Count Auto Diff Today D64.9 - Anemia, unspecified, G47.61 - Periodic limb movement disorder Vitamin B12 and Folate Today D64.9 - Anemia, unspecified, G47.61 - Periodic limb movement disorder IRON PROFILE Today D64.9 - Anemia, unspecified, G47.61 - Periodic limb movement disorder PT Evaluation and Treatment Today H81.399 - Other peripheral vertigo, unspecified ear Ferritin Today D64.9 - Anemia, unspecified, G47.61 - Periodic limb movement disorder Medications: New ascorbic acid (vitamin C) take w/ ferrous sulfate 250 mg PO BID 30 days 60 tabs 3RF Coding Level of Care Code Est Pt Level 4 (52668) Diagnoses Periodic limb movements of sleep G47.61 Peripheral positional vertigo H81.399 Migraine without aura G43.009 Iron deficiency anemia due to chronic blood loss D50.8 Iron deficiency anemia type: inadequate dietary iron intake
== END 2023-03-02 08:35 | disposition home or self-care (01) ==
PROVIDERS: Visit Provider Nurse Practitioner Family
DX: G47.61 Periodic limb movement disorder (principal); H81.399 Other peripheral vertigo, unspecified ear; G43.009 Migraine without aura, not intractable, without status migrainosus; D50.8 Other iron deficiency anemias
CPT/HCPCS: 99214

== ENCOUNTER → 2023-03-02 07:48 | Outpatient (BNVA) | payer OTHER, SELFPAY | PROVIDERS: Visit Provider Nurse Practitioner Family | DX: G43.009 Migraine without aura, not intractable, without status migrainosus (principal); G47.61 Periodic limb movement disorder; H81.399 Other peripheral vertigo, unspecified ear; D50.8 Other iron deficiency anemias | CPT/HCPCS: 99212 ==

== ENCOUNTER → 2023-05-08 14:13 | Outpatient (BNVA) | payer OTHER, SELFPAY | PROVIDERS: Visit Provider Advanced Practice Midwife ==

== ENCOUNTER 2023-06-29 15:00 | Outpatient (AMB) | payer OTHER, SELFPAY ==
--- NOTE | 2023-06-29 15:04 | MHC.OFFVIS ---
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 Information Interpreted: clinical only Car Dryer: Car Dryer Present Allergies No Known Allergies [No Known Allergies*] Allergy (Verified 06/29/23 15:04) Medication List - Last Reconciled 06/29/23 by Lauren Ocampo CNM ascorbic acid (vitamin C) 250 mg PO BID 30 days cholecalciferol (vitamin D3) 50 mcg PO DAILY 90 days ferrous sulfate 325 mg PO BID 90 days magnesium oxide 400 mg PO BEDTIME 30 days naproxen 500 mg PO BID PRN riboflavin (vitamin B2) 400 mg PO DAILY 30 days sumatriptan succinate 50 - 100 mg orally at onset of headache, may repeat in 2 hrs PRN; max 2 tabs per day or 4 tabs/week (may take with Ibuprofen) 30 days topiramate 50 mg (2 x 25 mg) PO BEDTIME 90 days Is last menstrual period known: Yes Last menstrual period: 06/01/23 Do you need a note to return to daycare/school/sports/work: No HPI 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 She has a history of an abnormal Pap smear in 2019 U/S followed by a negative endometrial biopsy she also had no abnormal bleeding over the last several years this year she reports that her periods are coming every month and about every 3 months she gets a shorter. But it is more painful otherwise that last about 7-8 days sometimes she uses heating pads as well as ibuprofen and Tylenol to help with the cramping. 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 She just would very much like to have a baby and thinks she will give it a try until she is 40. 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 She is seeing her primary care provider and has an appointment coming up soon. 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 She is not worried about infection but accepts testing. She felt a little twinge earlier so she thought she might be getting her periods soon it is due. She last had sex a couple of days ago. She occasionally has a pain in her right breast under the nipple and would like that to get checked. She says it is there today. REPLACED BY [facility] Medical History Anemia Migraines Migraines Food intolerance Carpal tunnel syndrome Hand pain Physical exam Hand numbness Constipation by delayed colonic transit Chest wall pain Morbid obesity with BMI of 40.0-44.9, adult Polyarthralgia Hypovitaminosis D Pure hypercholesterolemia Iron deficiency anemia Vertigo Surgical History History of D&C Hx laparoscopic cholecystectomy Family History Father No problems noted. Mother No problems noted. Maternal Grandmother Diabetes Maternal Grandfather Stomach cancer Maternal Uncle Renal cancer Social History Housing: House Alcohol intake: never Patient Tobacco Use Status: Never used Tobacco e-Cigarette/Vaping Use: Never Used Second Hand Smoke Exposure: No service: No Current occupational status: employed Current occupational exposures/hazards: No Cognitive needs: No Hearing needs: No Vision needs: No Female Reproductive History Menstrual Age of Menarche: 13 Duration of menses: 3-5 days Date of last menstrual period: 06/01/23 control method: none Total pregnancies: 1 Full term: 1 Date of last pap smear: 11/06/21 (negative ) History of abnormal pap smear: Yes (2020,ROBY) Physical Exam Vital Signs: Last Vital Signs BP 116/68 06/29/23 15:10 BMI result Body Mass Index 44.4 Const General: healthy appearing, comfortable, no acute distress, well developed and alert Nutritional Appearance: average body habitus Orientation/consciousness: patient oriented x3 Limitations: no limitations HEENT Head: Yes normocephalic Neck Neck: Yes normal visual inspection Chest Other: No mass palpable especially in right breast which is where she sometimes feels pain under her nipple. Chest palpation & inspection: normal inspection of the chest Breast/axilla inspection: normal inspection of the breasts and normal inspection of the axillae Breast/axilla palpation: normal palpation of the breasts and normal palpation of the axillae Resp Effort & Inspection: normal respiratory effort GI Inspection: Yes normal to inspection, No Abdominal wall edema and No distended Palpation (GI): Soft to palpation and nontender Other: External exam is within normal limits vagina is pink and moist normal appearance to whitish clearish discharge cervix multiparous slight friability at os with Pap. Pap was repeated secondary to her history of abnormal, ROBY, in 2019. Uterus small anteverted mobile nontender fair to good tone with Kegel. General: Yes bladder normal to palpation External Female Exam: normal external appearance and normal appearance of the urethra Speculum Exam - Vagina: normal appearance of the vagina, normal palpation and normal vaginal discharge Speculum Exam - Cervix: normal appearance of the cervix, normal palpation and nontender Bimanual exam- vagina & uterus: normal bimanual exam, normal palpation, uterine size normal, bladder normal to palpation, consistency normal, normal palpation, uterine mobility normal, uterine shape normal, No Cervical tenderness present, non-tender and no cervical motion tenderness Bimanual Exam- Adnexa, other: normal adnexae, no masses, normal and No adnexal tenderness Neuro General: patient oriented x3 Assessment & Plan Assessment & Plan (1) Breast pain, right: Comment: Occasionally, under nipple Code(s): N64.4 - Mastodynia (2) Morbid obesity due to excess calories: Code(s): E66.01 - Morbid (severe) obesity due to excess calories (3) Hx of abnormal cervical Pap smear: Comment: ROBY 2019, bx done neg pap done 11/04/21= neg, w neg hpv Code(s): Z87.42 - Personal history of other diseases of the female genital tract (4) Patient desires : Code(s): Z31.9 - Encounter for procreative management, unspecified Plan -----Discussed in this visit the following: healthy balanced diet, regular and consistent exercise, getting recommended health screens, doing the best she can for her particular health concerns, kegel exercises, pap smear screening and followup recommendations, mammography screening and SBE, normal changes in cycles in her life stage--- .---Discussed with pt, her wt, and BMI, and her goals. Discussed ideal dietary guidelines to assist in weight loss, focusing on vegetables and fruits and lean proteins, and minimizing fats and carbohydrates and eliminating empty calories. Discussed exercise, including regular, sufficient, and consistent cardio based exercise, and weight bearing exercise. Discussed barriers to exercise and healthy eating, and possible ways of establishing newer healthier habits. Discussed supports to help in her efforts, and timing issues. Discussed adequate water intake.-- She already has cut out soda and has instituted some healthy cooking plans with no frying and other practices. Discussed the frustration of losing weight and keeping it off. Discussed that while is no guarantee that losing weight would allow her to get it is true that at this weight she would have a risk year because of all the risks entailed with obesity in . Additionally as she gets older it can get harder to get in addition to that if she were to be interested in seeking out in fertility services I am very sure that the 1st thing that they would tell her is that she needs to lose weight 1st and that if she did lose the weight and came with complete records of her menses signs and symptoms of ovulation including ovulation predictor kits and timing of for at least 6 months that that would be necessary in order to initiated discussion with them. If she was interested in this her primary care provider could definitely give her a referral but I did not recommend it until she had been keeping track and lost weight. Id did a Pap smear because of her history of ROBY even though the last year's Pap was normal. I have also ordered a mammogram of her right breast since there was no mass palpable I did not order an ultrasound. Orders: Orders CT NG by PCR Today N64.4 - Mastodynia, Z01.419 - Encounter for gynecological examination (general) (routine) without abnormal findings Bacterial Vaginosis Panel Today N64.4 - Mastodynia, Z20.2 - Contact with and (suspected) exposure to infections with a predominantly sexual mode of transmission MM tomosynthesis diagnostic RT Today N64.4 - Mastodynia Pap Smear Today Z01.419 - Encounter for gynecological examination (general) (routine) without abnormal findings Coding Level of Care Code Est Pt Prev Care [id number]([id number]) Diagnoses Breast pain, right N64.4 Morbid obesity due to excess calories E66.01 Hx of abnormal cervical Pap smear Z87.42 Patient desires Z31.9
[2023-06-29 15:10] VITALS: BP 116/68; BMI 44.4
== END 2023-06-29 16:18 | disposition home or self-care (01) ==
LOC: HO.HWSM 15:00
PROVIDERS: PCP Internal Medicine; Visit Provider Advanced Practice Midwife
DX: Z01.419 Encounter for gynecological examination (general) (routine) without abnormal findings (principal); N64.4 Mastodynia; E66.01 Morbid (severe) obesity due to excess calories; Z87.42 Personal history of other diseases of the female genital tract; Z31.9 Encounter for procreative management, unspecified
CPT/HCPCS: 99395

== ENCOUNTER 2023-06-29 15:00 | Outpatient (REF) | payer OTHER, SELFPAY ==
[2023-07-03 23:54] LABS: HPV mRNA E6/E7 rflx Not Detected (Not Detected)
== END 2023-06-29 15:01 | disposition home or self-care (01) ==
LOC: HO.LAB 15:00
PROVIDERS: PCP Internal Medicine; Visit Provider Advanced Practice Midwife
DX: Z01.419 Encounter for gynecological examination (general) (routine) without abnormal findings (principal); N64.4 Mastodynia; E66.01 Morbid (severe) obesity due to excess calories; Z87.42 Personal history of other diseases of the female genital tract; Z20.2 Contact with and (suspected) exposure to infections with a predominantly sexual mode of transmission; Z79.899 Other long term (current) drug therapy
CPT/HCPCS: 0353U; 87480; 87510; 87624; 87660; 88142; 99395

== ENCOUNTER 2023-07-17 14:42 | Outpatient (REF) | payer OTHER, SELFPAY ==
--- NOTE | ~2023-07-17 | US_ITS ---
EXAMINATION: MM DIAGNOSTIC DIGITAL BREAST TOMOSYNTHESIS, BILATERAL US BREAST LIMITED, RIGHT MAMMOGRAPHY: CLINICAL INFORMATION: 37-year-old female, baseline exam, complaining of shooting pain in the right nipple radiating to the right breast. COMPARISON: Mammography: None. Baseline exam. TECHNIQUE: Digital breast tomosynthesis is performed in both the craniocaudal and mediolateral oblique views along with computer-aided detection (CAD). Synthesized 2D images are generated from the tomosynthesis. In addition, full-field right 3-D ML view was also obtained. FINDINGS: There are scattered areas of fibroglandular density (ACR BI-RADS breast composition Category b). There are no suspicious masses, suspicious grouped calcifications, or areas of architectural distortion in either breast. In particular, within the right breast periareolar region, there is no mammographic abnormality. ULTRASOUND: CLINICAL INFORMATION: 37-year-old female, baseline exam, complaining of shooting pain in the right nipple radiating to the right breast. COMPARISON: No prior ultrasound. TECHNIQUE: Targeted sonographic evaluation was performed using a high frequency linear transducer. Attention was focused on the right periareolar region in the region of breast pain. Selected archived documentation. FINDINGS: RIGHT BREAST: There is a mixture of fatty and fibroglandular tissue. No suspicious mass is seen. There is no pathologic acoustic shadowing. There are no cystic abnormalities. There is no sonographic abnormality in the periareolar or retroareolar region of the right breast. US/US breast RT limited mamm only IMPRESSION: There are no findings in either breast suspicious for malignancy. There is no mammographic or ultrasonographic abnormality in the right periareolar or retroareolar region to explain retroareolar breast pain. Recommend clinical management of the patient's complaints. Otherwise, recommend the patient begin annual mammographic screening at age 40. OVERALL ASSESSMENT: Mammography: BI-RADS 1 - Negative Ultrasound: BI-RADS 1 - Negative RECOMMENDATION: Mammo at 40 or earlier if clinically needed Results were provided to the patient at time of visit by the technologist. This patient's information was entered into a reminder system with a target due date for their next mammogram.
== END 2023-07-17 14:43 | disposition home or self-care (01) ==
LOC: HO.MAMMO 14:42
PROVIDERS: PCP Internal Medicine; Visit Provider Advanced Practice Midwife
DX: N64.4 Mastodynia (principal)
CPT/HCPCS: 76642; 77062; 77066

== ENCOUNTER → 2023-07-17 15:00 | Outpatient (BNV) | payer OTHER, SELFPAY | PROVIDERS: PCP Internal Medicine; Visit Provider Radiology Diagnostic Radiology | DX: N64.4 Mastodynia (principal) | CPT/HCPCS: 76642; 77062; 77066 ==

== ENCOUNTER 2023-08-24 16:32 | Outpatient (REF) | payer OTHER, SELFPAY ==
[2023-08-24 16:50] LABS: MANUAL DIFF FLAG NO
[2023-08-24 17:38] LABS: Basophils Percent Auto 0.6 % (0-2); Eosinophils Absolute Auto 0.1 X10*3/uL (0.0-0.4); Eosinophils Percent Auto 1.9 % (0-4); Hematocrit 35.3 % (37.0-47.0); Hemoglobin 10.8 g/dl (12.0-16.0); Imm Gran Abs Auto 0.01 X10*3/uL (0.00-0.03); Imm Gran Pct Auto 0.2 % (0.0-0.4); Mean Corpuscular HGB Conc 30.6 g/dl (31.0-35.0); Mean Corpuscular Hemoglobin 23.8 pg (27.0-33.0); Mean Corpuscular Volume 77.8 fL (80.0-98.0); Mean Platelet Volume 10.4 fL (9.4-12.3); Monocytes Absolute Auto 0.5 X10*3/uL (0.1-1.2); Monocytes Percent Auto 7.8 % (2-11); Neutrophils Absolute Auto 3.7 x10*3/uL (2.0-8.3); Neutrophils Percent Auto 58.5 % (45-73); Platelet Count 381 X10*3/uL (160-400); Red Blood Count 4.54 X10*6/uL (4.20-5.50); Red Cell Distribution Width 18.8 % (11.0-16.0); White Blood Count 6.4 X10*3/uL (4.8-10.8)
[2023-08-24 18:14] LABS: Iron 44 mcg/dL (30-160); Percent Iron Saturation 12 % (15-50); Total Iron Binding Capacity 367 mcg/dL (228-428); Unsaturated Iron Binding 323 ug/dL
[2023-08-24 18:33] LABS: Ferritin 6 ng/mL (10-122)
[2023-08-24 18:42] LABS: Folate 14.8 ng/mL (> or = 4.0); Vitamin B12 323 pg/mL (200-900)
== END 2023-08-24 16:33 | disposition home or self-care (01) ==
LOC: HO.LAB 16:32
PROVIDERS: PCP Internal Medicine; Visit Provider Nurse Practitioner Family
DX: D64.9 Anemia, unspecified (principal); G47.61 Periodic limb movement disorder
CPT/HCPCS: 36415; 82607; 82728; 82746; 83540; 85025

== ENCOUNTER 2023-08-28 14:56 | Outpatient (AMB) | payer OTHER, SELFPAY ==
[2023-08-28 14:58] VITALS: PULSE 85; O2SAT 98; BMI 44.4
--- NOTE | 2023-08-28 14:58 | MHC.OFFVIS ---
Intake Vital Signs 08/28/23 14:58 Height 4 ft 11 in Weight 220 lb BMI 44.4 Pulse 85 Pulse Source Pulse Oximeter Pulse Oximetry (%) 98 Oxygen Delivery Method Room Air Intake Visit Reasons: 3m follow up Migraines - confirmed Intake Note: Patient presents for 3 month follow up. I had been doing good but lately Sharla been having headaches but the medication does work when I take them Allergies No Known Allergies [No Known Allergies*] Allergy (Verified 08/28/23 15:01) Medication List - Last Reconciled 08/28/23 by BRANDO Joseph ascorbic acid (vitamin C) 250 mg PO BID 30 days cholecalciferol (vitamin D3) 50 mcg PO DAILY 90 days ferrous sulfate 325 mg PO BID 90 days magnesium oxide 400 mg PO BEDTIME 30 days naproxen 500 mg PO BID PRN riboflavin (vitamin B2) 400 mg PO DAILY 30 days sumatriptan succinate 50 - 100 mg orally at onset of headache, may repeat in 2 hrs PRN; max 2 tabs per day or 4 tabs/week (may take with Ibuprofen) 30 days HPI HPI Comments History of Present Illness Details 37-yr-old female presents for f/u visit. Pt denies any significant interval medical changes. Pt reports she is having 1-2 migraine days per week. Using most of migraine meds just prn. Sumatriptan helps when she takes it. She is hopeful to start a family. Baseline migraine w/o aura headache characteristics: Mod-Severe Bifrontal pounding pain a/w photophobia, blurry vision, phonophobia, mild osmophobia (however since she had Covid-19 2 yrs ago- her sense of smell has decreased), nausea, room spinning dizziness, fatigue, some brain fog. Pt can still have restlessness when sitting for a while. She may wake up 1-2 x's per night but it is not bothersome. She is trying to be better about taking her iron and vit C. Hematology 08/24/23 16:48 WBC 6.4 RBC 4.54 Hgb 10.8 L Hct 35.3 L MCV 77.8 L MCH 23.8 L MCHC 30.6 L RDW 18.8 H Plt Count 381 Iron 44 TIBC 367 % Saturation 12 L Unsat Iron Binding 323 Ferritin 6 L Vitamin B12 323 Folate 14.8 PFSH Medical History (Updated 08/28/23 @ 15:32 by BRANDO Joseph) Anemia Migraines Migraines Food intolerance Carpal tunnel syndrome Hand pain Physical exam Hand numbness Constipation by delayed colonic transit Chest wall pain Morbid obesity with BMI of 40.0-44.9, adult Polyarthralgia Hypovitaminosis D Pure hypercholesterolemia Iron deficiency anemia Vertigo Surgical History History of D&C Hx laparoscopic cholecystectomy Family History Father No problems noted. Mother No problems noted. Maternal Grandmother Diabetes Maternal Grandfather Stomach cancer Maternal Uncle Renal cancer Social History Housing: House Alcohol intake: never Patient Tobacco Use Status: Never used Tobacco e-Cigarette/Vaping Use: Never Used Second Hand Smoke Exposure: No service: No Current occupational status: employed Current occupational exposures/hazards: No Cognitive needs: No Hearing needs: No Vision needs: No Female Reproductive History Menstrual Age of Menarche: 13 Physical Exam Vital Signs: Last Vital Signs Pulse 85 08/28/23 14:58 Pulse Ox 98 08/28/23 14:58 Oxygen Delivery Method Room Air 08/28/23 14:58 BMI result Body Mass Index 44.4 Const General: cooperative and no acute distress Orientation/consciousness: patient oriented x3 Resp Effort & Inspection: normal respiratory effort and able to speak in complete sentences Neuro General: patient oriented x3 Cranial nerves: Yes CN's II-XII intact bilaterally Cognition (Neuro): normal cognition Psych Appearance: grossly normal Mental Status: mental status grossly normal Speech and movement: Normal speech and movement present Affect: normal affect Attitude: cooperative Assessment & Plan Assessment & Plan (1) Anemia: Code(s): D64.9 - Anemia, unspecified (2) Patient desires : Code(s): Z31.9 - Encounter for procreative management, unspecified (3) Migraine without aura: Code(s): G43.009 - Migraine without aura, not intractable, without status migrainosus (4) Iron deficiency anemia: Code(s): D50.9 - Iron deficiency anemia, unspecified Qualifiers: Iron deficiency anemia type: inadequate dietary iron intake Qualified Code(s): D50.8 - Other iron deficiency anemias (5) Periodic limb movements of sleep: Code(s): G47.61 - Periodic limb movement disorder Plan Reviewed labs- H&H has improved, however ferritin is still low at 6L. Will homocystine and MMA as B-12 is low end of normal. Pt acknowledges she is not always c/w taking ferrous sulfate and vit c. Pt may benefit from iron infusions and/or hemetalogy consult, as her PLMS/RLS may improve if her ferritin level increases to > 75. In Pt will speak w/ PCP about this. In the meantime, encouraged her to be more complaint w/ ferrous sulfate and take w/ vit c. ? ?For overall headache management: Continue optimizing good self-care, including but not limited to maintaining a healthy diet, adequate fluid intake, adequate sleep, and engaging in regular physical activity. For headache triggers: Track headaches. ? For acute headache treatment: Continue Sumatriptan 100mg tab, 1/2 - 1 tab (50-100mg) at onset of headache, may repeat in 2 hours. Max of 2 tabs (200mg) per 24 hours. May adjunct with OTC Tylenol 650mg q 4 hours, Ibuprofen 600mg q 6 hours, or Naproxen 440mg q 12 hrs prn. Previous acute migraine medication trials: OTC Tylenol and Ibuprofen. Acute migraine medication contraindications: None at this time. ? For headache prevention medication: Continue Riboflavin 400mg qam Continue Magnesium 400mg qhs Stop Topiramate to 50mg qhs- as pt hopes to become . Previous migraine prevention medication trials: Amitriptyline 25mg- ineffective Migraine prevention medication contraindications: None at this time. ? Pt to follow-up in 4-6 months or sooner prn. Orders: Orders Homocysteine Today D64.9 - Anemia, unspecified Methylmalonic Acid Today D64.9 - Anemia, unspecified Medications: Discontinued topiramate Discontinued Reason: Doctor's Order 50 mg (2 x 25 mg) PO BEDTIME 90 days 180 tabs 1RF G43.909 - Migraine, unspecified, not intractable, without status migrainosus Coding Level of Care Code Est Pt Level 4 (36176) Diagnoses Anemia D64.9 Patient desires Z31.9 Migraine without aura G43.009 Iron deficiency anemia due to chronic blood loss D50.8 Iron deficiency anemia type: inadequate dietary iron intake Periodic limb movements of sleep G47.61
== END 2023-08-28 15:38 | disposition home or self-care (01) ==
PROVIDERS: PCP Internal Medicine; Visit Provider Nurse Practitioner Family
DX: D64.9 Anemia, unspecified (principal); Z31.9 Encounter for procreative management, unspecified; G43.009 Migraine without aura, not intractable, without status migrainosus; D50.8 Other iron deficiency anemias; G47.61 Periodic limb movement disorder
CPT/HCPCS: 99214

== ENCOUNTER → 2023-08-28 14:56 | Outpatient (BNVA) | payer OTHER, SELFPAY | PROVIDERS: PCP Internal Medicine; Visit Provider Nurse Practitioner Family | DX: G43.009 Migraine without aura, not intractable, without status migrainosus (principal); Z31.9 Encounter for procreative management, unspecified; D50.8 Other iron deficiency anemias; D64.9 Anemia, unspecified; G47.61 Periodic limb movement disorder | CPT/HCPCS: 99212 ==

== ENCOUNTER 2023-08-31 13:55 | Outpatient (AMB) | payer OTHER, SELFPAY ==
[2023-08-31 14:18] VITALS: BP 122/70; BMI 44.8
--- NOTE | 2023-08-31 14:18 | MHC.OFFVIS ---
Intake Vital Signs 08/31/23 14:18 Height 4 ft 11 in Weight 222 lb BMI 44.8 BP 122/70 Intake Visit Reasons: Breast Ultrasound Follow up [employer] Required: No Information Interpreted: clinical only Head Of [employer]: [employer] Present Allergies No Known Allergies [No Known Allergies*] Allergy (Verified 08/31/23 14:19) Medication List - Last Reconciled 08/31/23 by Lauren Ocampo CNM ascorbic acid (vitamin C) 250 mg PO BID 30 days cholecalciferol (vitamin D3) 50 mcg PO DAILY 90 days ferrous sulfate 325 mg PO BID 90 days magnesium oxide 400 mg PO BEDTIME 30 days naproxen 500 mg PO BID PRN riboflavin (vitamin B2) 400 mg PO DAILY 30 days sumatriptan succinate 50 - 100 mg orally at onset of headache, may repeat in 2 hrs PRN; max 2 tabs per day or 4 tabs/week (may take with Ibuprofen) 30 days Is last menstrual period known: Yes Last menstrual period: 08/23/23 Do you need a note to return to daycare/school/sports/work: No HPI Breast Ultrasound Follow up HPI Details menses 07/10-, aug 23 spotting x 2d, then 08/25/23--now. Lose weight and trying to eat healthier and make her own shakes but has not been successful so far she knows that they do a different kind a protein shake at the weight management program and she does not like those so she has not interested in going to that program. She does want to have a baby her 1 child is a teenager. She has with a new partner sometimes her periods come a little bit late as above. She would be open to nutrition referral. She had an appointment that got changed by the primary care office in April so she needs to make another 1 she did not think she had any diabetes that her tests were okay so I did look at her labs and her did last fasting blood sugar was very slightly elevated at 103 which technically is in the prediabetes range. She is getting various other workups and evaluations. Stressed again the importance of trying to lose weight to get to healthier place before she tries to achieve however because she is 37 timing is very important and the risks go up and it becomes more difficult as well I recommend she continue to double her efforts to lose weight and keep careful track of her menses which she is doing with her calendar and also keep track of everything else and if it is 6 months she has not gotten she could talk with Dr. Wheeler about getting referral to [facility] reproductive endocrinology though I suspect that they would want her to lose weight before any kind of assisted reproductive efforts could be considered. She is aware and she is open to laser beam machine operator referral which I have placed for her as well I also reviewed her normal mammogram which was the reason for this visit though frankly they had told her the results and they were negative so she did not need the appointment for that and I also reviewed her Pap smear which was negative as well I also reviewed her other past labs that she had done including the positive BV but negative all else. She did not have any symptoms so did not require treatment for that [facility] Medical History Anemia Migraines Migraines Food intolerance Carpal tunnel syndrome Hand pain Physical exam Hand numbness Constipation by delayed colonic transit Chest wall pain Morbid obesity with BMI of 40.0-44.9, adult Polyarthralgia Hypovitaminosis D Pure hypercholesterolemia Iron deficiency anemia Vertigo Surgical History History of D&C Hx laparoscopic cholecystectomy Family History Father No problems noted. Mother No problems noted. Maternal Grandmother Diabetes Maternal Grandfather Stomach cancer Maternal Uncle Renal cancer Social History Housing: House Alcohol intake: never Patient Tobacco Use Status: Never used Tobacco e-Cigarette/Vaping Use: Never Used Second Hand Smoke Exposure: No service: No Current occupational status: employed Current occupational exposures/hazards: No Cognitive needs: No Hearing needs: No Vision needs: No Female Reproductive History Menstrual Age of Menarche: 13 Duration of menses: 6-7 days Date of last menstrual period: 08/23/23 control method: none Total pregnancies: 1 Full term: 1 Date of last pap smear: 06/30/23 (negative) Physical Exam Vital Signs: Last Vital Signs BP 122/70 08/31/23 14:18 BMI result Body Mass Index 44.8 Results Reviewed Results Reviewed: Patient: Ernesto Katie Luevano MR#: [id number] : 1985 Acct:[id number] Age/Sex: 37 / F ADM Date: 07/17/23 Loc: HO.MAMMO Attending Dr: Lauren Ocampo CNM Ordering Physician: Lauren Ocampo CNM Date of Service: 07/17/23 Procedure(s): US breast RT limited mamm only Accession Number(s): [id number] cc: Lauren Ocampo CNM; Carri Michaels MD~ EXAMINATION: MM DIAGNOSTIC DIGITAL BREAST TOMOSYNTHESIS, BILATERAL US BREAST LIMITED, RIGHT MAMMOGRAPHY: CLINICAL INFORMATION: 37-year-old female, baseline exam, complaining of shooting pain in the right nipple radiating to the right breast. COMPARISON: Mammography: None. Baseline exam. TECHNIQUE: Digital breast tomosynthesis is performed in both the craniocaudal and mediolateral oblique views along with computer-aided detection (CAD). Synthesized 2D images are generated from the tomosynthesis. In addition, full-field right 3-D ML view was also obtained. FINDINGS: There are scattered areas of fibroglandular density (ACR BI-RADS breast composition Category b). There are no suspicious masses, suspicious grouped calcifications, or areas of architectural distortion in either breast. In particular, within the right breast periareolar region, there is no mammographic abnormality. ULTRASOUND: CLINICAL INFORMATION: 37-year-old female, baseline exam, complaining of shooting pain in the right nipple radiating to the right breast. COMPARISON: No prior ultrasound. TECHNIQUE: Targeted sonographic evaluation was performed using a high frequency linear transducer. Attention was focused on the right periareolar region in the region of breast pain. Selected archived documentation. FINDINGS: RIGHT BREAST: There is a mixture of fatty and fibroglandular tissue. No suspicious mass is seen. There is no pathologic acoustic shadowing. There are no cystic abnormalities. There is no sonographic abnormality in the periareolar or retroareolar region of the right breast. US/US breast RT limited mamm only IMPRESSION: There are no findings in either breast suspicious for malignancy. There is no mammographic or ultrasonographic abnormality in the right periareolar or retroareolar region to explain retroareolar breast pain. Recommend clinical management of the patient's complaints. Otherwise, recommend the patient begin annual mammographic screening at age 40. OVERALL ASSESSMENT: Mammography: BI-RADS 1 - Negative Ultrasound: BI-RADS 1 - Negative RECOMMENDATION: Mammo at 40 or earlier if clinically needed Results were provided to the patient at time of visit by the technologist. This patient's information was entered into a reminder system with a target due date for their next mammogram. Name: Orozco BassemKatie Age/Sex: 37/F Attending: Lauren Ocampo CNM : 1985 Submitted by: Lauren Ocampo CNM Copies to: Carri Michaels MD MR #: [id number] Status: DEP REF Collected: 06/29/23 Location: .LAB Received: 06/30/23 Interpretation Satisfactory for evaluation. Abundant inflammation. Negative for intraepithelial lesion or malignancy. HPV mRNA E6/E7: NOT DETECTED This assay detects E6/E7 viral messenger RNA (mRNA) from 14 high-risk HPV types (16, 18, 31, 33, 35, 39, 45, 51, 52, 56, 58, 59, 66, 68) HPV testing performed by [facility], [place], [place]. See reference laboratory portion of the EMR for entire report. Clinical Information LMP: 06/01/23 Previous PAP test: 2021, WNL Material Received ThinPrep-Cervical Copies To Lauren Ocampo CNM [address] [place] [address] [place] [address] Carri Michaels MD [address] [place] [address] Dr. Nich[address] [place] [address] Electronically Signed By: BRI Jacobson ([facility]) 07/04/23 1323 The Pap Test is a screening procedure with the inherent possibility of both false negative and false positive results. Results should be interpreted in the context of historic and current clinical findings. Reliability of the Pap Test is enhanced by performing the test on a regular repetitive basis. Patient: Katie Madrigal Age/Sex: 37/F MR#: [id number] Page 1 of 1 Assessment & Plan Assessment & Plan (1) Morbid obesity due to excess calories: Code(s): E66.01 - Morbid (severe) obesity due to excess calories (2) Hx of abnormal cervical Pap smear: Comment: ROBY 2019, bx done neg pap done 11/04/21= neg, w neg hpv; 06/29/2022 Pap is negative with negative HPV, abundant inflammation. Code(s): Z87.42 - Personal history of other diseases of the female genital tract (3) Patient desires : Code(s): Z31.9 - Encounter for procreative management, unspecified (4) Morbid obesity with BMI of 40.0-44.9, adult: Code(s): E66.01 - Morbid (severe) obesity due to excess calories; Z68.41 - Body mass index [BMI] 40.0-44.9, adult (5) Breast pain, right: Comment: Occasionally, under nipple; Patient had negative mammogram and ultrasound. Code(s): N64.4 - Mastodynia Plan menses 07/10-, aug 23 spotting x 2d, then 08/25/23--now. Lose weight and trying to eat healthier and make her own shakes but has not been successful so far she knows that they do a different kind a protein shake at the weight management program and she does not like those so she has not interested in going to that program. She does want to have a baby her 1 child is a teenager. She has with a new partner sometimes her periods come a little bit late as above. She would be open to nutrition referral. She had an appointment that got changed by the primary care office in April so she needs to make another 1 she did not think she had any diabetes that her tests were okay so I did look at her labs and her did last fasting blood sugar was very slightly elevated at 103 which technically is in the prediabetes range. She is getting various other workups and evaluations. Stressed again the importance of trying to lose weight to get to healthier place before she tries to achieve however because she is 37 timing is very important and the risks go up and it becomes more difficult as well I recommend she continue to double her efforts to lose weight and keep careful track of her menses which she is doing with her calendar and also keep track of everything else and if it is 6 months she has not gotten she could talk with Dr. Wheeler about getting referral to [facility] reproductive endocrinology though I suspect that they would want her to lose weight before any kind of assisted reproductive efforts could be considered. She is aware and she is open to laser beam machine operator referral which I have placed for her as well I also reviewed her normal mammogram which was the reason for this visit though frankly they had told her the results and they were negative so she did not need the appointment for that and I also reviewed her Pap smear which was negative as well I also reviewed her other past labs that she had done including the positive BV but negative all else. She did not have any symptoms so did not require treatment for that Orders: Referrals Nutrition/Dietitian Referral E66.01 - Morbid (severe) obesity due to excess calories, Z31.9 - Encounter for procreative management, unspecified, Z68.41 - Body mass index [BMI] 40.0-44.9, adult, Z87.42 - Personal history of other diseases of the female genital tract Coding Level of Care Code Est Pt Level 3 (71386) Diagnoses Morbid obesity due to excess calories E66.01 Hx of abnormal cervical Pap smear Z87.42 Patient desires Z31.9 Morbid obesity with BMI of 40.0-44.9, adult E66.01; Z68.41 Breast pain, right N64.4
== END 2023-08-31 15:07 | disposition home or self-care (01) ==
LOC: HO.HWSM 13:55
PROVIDERS: PCP Internal Medicine; Visit Provider Advanced Practice Midwife
DX: E66.01 Morbid (severe) obesity due to excess calories (principal); Z87.42 Personal history of other diseases of the female genital tract; Z31.9 Encounter for procreative management, unspecified; Z68.41 Body mass index [BMI] 40.0-44.9, adult; N64.4 Mastodynia
CPT/HCPCS: 99213

== ENCOUNTER → 2023-08-31 13:55 | Outpatient (BNVA) | payer OTHER, SELFPAY | PROVIDERS: PCP Internal Medicine; Visit Provider Advanced Practice Midwife | DX: N64.4 Mastodynia (principal); E66.01 Morbid (severe) obesity due to excess calories; Z31.9 Encounter for procreative management, unspecified; Z87.42 Personal history of other diseases of the female genital tract; Z68.41 Body mass index [BMI] 40.0-44.9, adult | CPT/HCPCS: 99212 ==

== ENCOUNTER 2023-11-13 16:33 | Outpatient (REF) | payer OTHER, SELFPAY ==
[2023-11-16 17:49] LABS: Methylmalonic Acid 179 nmol/L (87-318)
== END 2023-11-13 16:34 | disposition home or self-care (01) ==
LOC: HO.LAB 16:33
PROVIDERS: Visit Provider Nurse Practitioner Family
DX: D64.9 Anemia, unspecified (principal)
CPT/HCPCS: 36415; 83090; 83921

== ENCOUNTER 2023-11-17 16:21 | Outpatient (REF) | payer OTHER, SELFPAY ==
[2023-11-20 18:48] LABS: Homocysteine 8.4 umol/L (<10.4)
== END 2023-11-17 16:22 | disposition home or self-care (01) ==
LOC: HO.LAB 16:21
PROVIDERS: PCP Internal Medicine; Visit Provider Nurse Practitioner Family
DX: D64.9 Anemia, unspecified (principal)
CPT/HCPCS: 36415; 83090

== ENCOUNTER → 2023-11-21 13:56 | Outpatient (RCR) | payer OTHER, SELFPAY ==
--- NOTE | 2022-03-04 18:02 | MHC.OT.EP ---
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 Today she presents with a negative Phalens . Loss of protective sensation on right thumb pad with Tullos Apolinar monofilaments Diminished light touch on right digit 2-4 Normal light touch on right digit 5 . 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 Thank you once again for your referral.
== END | disposition home or self-care (01) ==
LOC: HO.OT 01-11 14:45
PROVIDERS: PCP Internal Medicine; Visit Provider Internal Medicine
DX: G56.01 Carpal tunnel syndrome, right upper limb (principal)
CPT/HCPCS: 97035; 97110; 97167

== ENCOUNTER 2023-11-23 07:16 | Outpatient (AMB) | payer OTHER, SELFPAY ==
--- NOTE | 2023-11-23 07:39 | MHC.PC.OV ---
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 by: Self / Same As Patient Allergies No Known Allergies [No Known Allergies*] Allergy (Verified 11/23/23 07:58) Medication List - Last Reconciled 11/23/23 by Carri Whitfield MD ascorbic acid (vitamin C) 250 mg PO BID 30 days cholecalciferol (vitamin D3) 50 mcg PO DAILY 90 days ferrous sulfate 325 mg PO BID 90 days magnesium oxide 400 mg PO BEDTIME 30 days meclizine 25 mg PO DAILY PRN naproxen 500 mg PO BID PRN riboflavin (vitamin B2) 400 mg PO DAILY 30 days sumatriptan succinate 50 - 100 mg orally at onset of headache, may repeat in 2 hrs PRN; max 2 tabs per day or 4 tabs/week (may take with Ibuprofen) 30 days Tobacco use date assessed: 11/23/23 Dental Screening Dental Screen Date: 11/23/23 Did you have a dental visit in the last 12 months?: No Did you have a dental problem in the last 6 months where you did not have access to dental care?: No Was dental information given to patient?: Patient has dentist HPI HPI Comments History of Present Illness Details This is a 37-year-old female with morbid obesity, iron-deficiency anemia, migraines and low vitamin-D that comes today as a hospital discharge follow-up with discharge date 10/31/2023 from [facility] due to anemia requiring blood transfusion. She said her hemoglobin was 7 and she said they discharge her with an hemoglobin of 11. I do not have the hospitalization papers but we did ask for them already. I will order a CBC to recheck hemoglobin. She said her menses was very heavy before going to ER. Now menses have been stable. She is morbidly obese with a BMI of 45 and declines weight loss surgery and/or Wegovy at the moment. She has migraines and use sumatriptan as needed that controls them well. On vitamin-D supplements for her low vitamin-D. No chest pain or shortness on breath. [facility] Medical History (Updated 05/30/24 @ 10:20 by Carri Whitfield MD) Migraines Pa-George anastomosis Anemia Migraines Food intolerance Carpal tunnel syndrome Hand pain Physical exam Hand numbness Constipation by delayed colonic transit Chest wall pain Morbid obesity with BMI of 40.0-44.9, adult Polyarthralgia Hypovitaminosis D Pure hypercholesterolemia Iron deficiency anemia Vertigo Surgical History History of D&C Hx laparoscopic cholecystectomy Family History Father No problems noted. Mother No problems noted. Maternal Grandmother Diabetes Maternal Grandfather Stomach cancer Maternal Uncle Renal cancer Social History Housing: House Alcohol intake: never Patient Tobacco Use Status: Never used Tobacco e-Cigarette/Vaping Use: Never Used Second Hand Smoke Exposure: No service: No Current occupational status: employed Current occupational exposures/hazards: No Cognitive needs: No Hearing needs: No Vision needs: No Female Reproductive History Menstrual Age of Menarche: 13 Questionnaire PHQ-9 Over the last 2 weeks, how often have you been bothered by any of the following problems? 1. Little interest or pleasure in doing things: not at all 2. Feeling down, depressed, or hopeless: not at all 3. Trouble falling or staying asleep, or sleeping too much: not at all 4. Feeling tired or having little energy: not at all 5. Poor appetite or overeating: not at all 6. Feeling bad about yourself - or that you are a failure or have let yourself or your family down: not at all 7. Trouble concentrating on things, such as reading the newspaper or watching television: not at all 8. Moving or speaking so slowly that other people could have noticed. Or the opposite - being so fidgety or restless that you have been moving around a lot more than usual: not at all 9. Thoughts that you would be better off or of hurting yourself in some way: not at all Total score: 0 Depression Screening Interpretation: Negative Depression Screening Done: Yes 96055 - PHQ-9 Billing: Yes Source: Developed by Drs. Gibran Matos, Oscar Foley and colleagues, with an educational makeda from [employer]. Thrive Questionnaire Date Thrive assessed: 11/23/23 I am a: Patient What is your living situation today?: I have a steady place to live Within the past 12 months, did the food you bought not last and you didn't have the money to get more?: Never true Within the past 12 months, did you worry whether your food would run out before you got money to buy more?: Never true Do you have trouble paying for medicines?: No Do you have trouble getting transportation to medical appointments?: No Do you have trouble paying your heating and electricity bill?: No Do you have trouble taking care of your child, family member or friend?: No Do you have trouble with day-to-day activities such as bathing, preparing meals, shopping, managing finances, etc.?: No Are you currently unemployed and looking for a job?: No Are you interested in more education?: No Please select the resources that you would like help with: None Currently or been in a relationship where the following occur: no concerns reported THRIVE Score: 0 AUDIT C Alcohol Use Questionnaire (AUDIT-C) 1. How often do you have a drink containing alcohol?: Never Total Score: 0 Score Reviewed/Action Taken: No ANIBAL-7 AMB Questionnaire ANIBAL-7 Date ANIBAL - 7 assessed: 11/23/23 Feeling nervous, anxious, or on edge: 0 = Not at all Not being able to stop or control worryin = Not at all Worrying too much about different things: 0 = Not at all Trouble relaxin = Not at all Being so restless that it is hard to sit still: 0 = Not at all Becoming easily annoyed or irritable: 0 = Not at all Feeling afraid as if something awful might happen: 0 = Not at all Total ANIBAL-7 score (0-4 normal; 5-9 mild; 10-14 moderate; 15-21 severe): 0 Source: Developed by Drs. Gibran Matos, Oscar Foley and colleagues, with an educational makeda from [employer]. ANIBAL-7 Assessment Billing ANIBAL-7 Assessment Tool: ANIBAL-7 Assessment 96471 Review of Systems Const All systems reviewed & are unremarkable except as noted in HPI and below Card Denies chest pain at rest, Denies chest pain with activity, Denies edema, Denies irregular heart rhythm, Denies claudication, Denies dyspnea, Denies dyspnea on exertion, Denies orthopnea, Denies paroxysmal nocturnal dyspnea and Denies slow heart rate Resp Denies cough, Denies dyspnea and Denies dyspnea on exertion Neuro Denies behavioral changes Psych Denies behavioral changes Physical exam (Primary Care) Vital Signs: Last Vital Signs BP 112/70 11/23/23 07:44 BMI result Body Mass Index 45.0 Tobacco/Smoking Status: Tobacco use Status Tobacco use date assessed 11/23/23 11/23/23 07:50 Patient Tobacco Use Status Never used Tobacco 11/23/23 07:42 e-Cigarette/Vaping Use Never Used 11/23/23 07:42 PHQ-9: PHQ-9 Score PHQ-9: Total score 0 11/23/23 08:01 Depression Screening Interpretation: Negative Thrive Assessment: Date of Thrive Assessment Date Thrive assessed 11/23/23 11/23/23 07:42 Currently or been in a relationship where the following occur: no concerns reported Resp Effort & Inspection: normal respiratory effort Auscultation: clear to auscultation bilaterally Cardio Jugular venous distension: no JVD Rate: regular rate Rhythm: regular rhythm Heart sounds: S1 normal heart sound present and S2 normal heart sound present Extrem General: Yes full ROM Psych Appearance: grossly normal Assessment and Plan Assessment & Plan (1) Morbid obesity due to excess calories: Code(s): E66.01 - Morbid (severe) obesity due to excess calories Plan: Advised to do diet and exercise. BMI goal is less than 30. (2) Iron deficiency anemia: Code(s): D50.9 - Iron deficiency anemia, unspecified Qualifiers: Iron deficiency anemia type: inadequate dietary iron intake Qualified Code(s): D50.8 - Other iron deficiency anemias Plan: Continue ferrous sulfate with vitamin-C. Repeat CBC. (3) Hypovitaminosis D: Code(s): E55.9 - Vitamin D deficiency, unspecified Plan: Continue vitamin-D supplements. (4) Migraines: Code(s): G43.909 - Migraine, unspecified, not intractable, without status migrainosus Qualifiers: Migraine type: ophthalmoplegic Intractability: not intractable Qualified Code(s): G43.B0 - Ophthalmoplegic migraine, not intractable Plan: Continue sumatriptan as needed. Orders: Orders Complete Blood Count Auto Diff Today D64.9 - Anemia, unspecified IRON PROFILE Today D64.9 - Anemia, unspecified Vitamin D 25-OH Total Today E55.9 - Vitamin D deficiency, unspecified Magnesium Today E83.42 - Hypomagnesemia Lipid Panel 3 Months E78.5 - Hyperlipidemia, unspecified Comprehensive Brandon. 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
[2023-11-23 07:44] VITALS: BP 112/70; BMI 45.0
== END 2023-11-23 08:20 | disposition home or self-care (01) ==
PROVIDERS: PCP Internal Medicine; Visit Provider Internal Medicine
DX: D50.8 Other iron deficiency anemias (principal); E66.01 Morbid (severe) obesity due to excess calories; Z68.42 Body mass index [BMI] 45.0-49.9, adult; E55.9 Vitamin D deficiency, unspecified; G43.B0 Ophthalmoplegic migraine, not intractable
CPT/HCPCS: 99214; G2211

== ENCOUNTER 2023-11-23 08:30 | Outpatient (REF) | payer OTHER, SELFPAY ==
[2023-11-23 08:46] LABS: MANUAL DIFF FLAG NO
[2023-11-23 09:30] LABS: Basophils Absolute Auto 0.1 X10*3/uL (0.0-0.2); Eosinophils Absolute Auto 0.1 X10*3/uL (0.0-0.4); Eosinophils Percent Auto 2.4 % (0-4); Hematocrit 38.8 % (37.0-47.0); Hemoglobin 12.2 g/dl (12.0-16.0); Imm Gran Abs Auto 0.01 X10*3/uL (0.00-0.03); Imm Gran Pct Auto 0.2 % (0.0-0.4); Lymphocytes Absolute Auto 1.7 X10*3/uL (1.2-4.9); Lymphocytes Percent Auto 34.1 % (20-40); Mean Corpuscular HGB Conc 31.4 g/dl (31.0-35.0); Mean Corpuscular Hemoglobin 26.3 pg (27.0-33.0); Mean Corpuscular Volume 83.8 fL (80.0-98.0); Mean Platelet Volume 10.4 fL (9.4-12.3); Monocytes Absolute Auto 0.5 X10*3/uL (0.1-1.2); Monocytes Percent Auto 9.1 % (2-11); Neutrophils Absolute Auto 2.6 x10*3/uL (2.0-8.3); Neutrophils Percent Auto 53.2 % (45-73); Platelet Count 359 X10*3/uL (160-400); Red Blood Count 4.63 X10*6/uL (4.20-5.50); Red Cell Distribution Width 20.4 % (11.0-16.0); White Blood Count 4.9 X10*3/uL (4.8-10.8)
[2023-11-23 10:02] LABS: Iron 62 mcg/dL (30-160); Magnesium 1.9 mg/dL (1.6-2.6); Percent Iron Saturation 19 % (15-50); Total Iron Binding Capacity 326 mcg/dL (228-428); Unsaturated Iron Binding 264 ug/dL
[2023-11-23 10:21] LABS: Vitamin D 25-OH Total 18.1 ng/mL (>30)
== END 2023-11-23 08:31 | disposition home or self-care (01) ==
LOC: HO.LAB 08:30
PROVIDERS: PCP Internal Medicine; Visit Provider Internal Medicine
DX: D64.9 Anemia, unspecified (principal); E55.9 Vitamin D deficiency, unspecified; E83.42 Hypomagnesemia
CPT/HCPCS: 36415; 82306; 83540; 83735; 85025

== ENCOUNTER 2024-02-01 15:02 | Outpatient (AMB) | payer OTHER, SELFPAY ==
--- NOTE | 2024-02-01 15:15 | MHC.PC.OV ---
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 Accompanied by: Self / Same As Patient Allergies No Known Allergies [No Known Allergies*] Allergy (Verified 02/01/24 15:24) Medication List - Last Reconciled 02/01/24 by Carri Whitfield MD ascorbic acid (vitamin C) 250 mg PO BID 30 days cholecalciferol (vitamin D3) 50 mcg PO DAILY 90 days ferrous sulfate 325 mg PO BID 90 days magnesium oxide 400 mg PO BEDTIME 30 days meclizine 25 mg PO DAILY PRN medroxyprogesterone 10 mg PO DAILY naproxen 500 mg PO BID PRN riboflavin (vitamin B2) 400 mg PO DAILY 30 days sumatriptan succinate 50 - 100 mg orally at onset of headache, may repeat in 2 hrs PRN; max 2 tabs per day or 4 tabs/week (may take with Ibuprofen) 30 days Tobacco use date assessed: 11/23/23 Dental Screening Dental Screen Date: 11/23/23 HPI HPI Comments History of Present Illness Details This is a 38-year-old female that comes for her physical exam. Pap smear done in June was normal. She is morbidly obese with a BMI of 43.8 and is doing diet and exercise to reach BMI goal less than 30. Denies any chest pain or shortness on breath. Doing well. [facility] Medical History Migraines Pa-George anastomosis Anemia Migraines Food intolerance Carpal tunnel syndrome Hand pain Physical exam Hand numbness Constipation by delayed colonic transit Chest wall pain Morbid obesity with BMI of 40.0-44.9, adult Polyarthralgia Hypovitaminosis D Pure hypercholesterolemia Iron deficiency anemia Vertigo Surgical History History of D&C Hx laparoscopic cholecystectomy Family History Father No problems noted. Mother No problems noted. Maternal Grandmother Diabetes Maternal Grandfather Stomach cancer Maternal Uncle Renal cancer Social History Housing: House Alcohol intake: never Patient Tobacco Use Status: Never used Tobacco e-Cigarette/Vaping Use: Never Used Second Hand Smoke Exposure: No service: No Current occupational status: employed Current occupational exposures/hazards: No Cognitive needs: No Hearing needs: No Vision needs: No Female Reproductive History Menstrual Age of Menarche: 13 Questionnaire PHQ-9 Over the last 2 weeks, how often have you been bothered by any of the following problems? 1. Little interest or pleasure in doing things: not at all 2. Feeling down, depressed, or hopeless: not at all 3. Trouble falling or staying asleep, or sleeping too much: not at all 4. Feeling tired or having little energy: not at all 5. Poor appetite or overeating: not at all 6. Feeling bad about yourself - or that you are a failure or have let yourself or your family down: not at all 7. Trouble concentrating on things, such as reading the newspaper or watching television: not at all 8. Moving or speaking so slowly that other people could have noticed. Or the opposite - being so fidgety or restless that you have been moving around a lot more than usual: not at all 9. Thoughts that you would be better off or of hurting yourself in some way: not at all Total score: 0 Depression Screening Interpretation: Negative Depression Screening Done: Yes 31555 - PHQ-9 Billing: Yes Source: Developed by Drs. Gibran Matos, Shari Miller, Oscar Layton and colleagues, with an educational makeda from [employer]. Thrive Questionnaire Date Thrive assessed: 11/23/23 ANIBAL-7 AMB Questionnaire ANIBAL-7 Date ANIBAL - 7 assessed: 11/23/23 Source: Developed by Drs. Gibran Matos, Shari Miller, Oscar Layton and colleagues, with an educational makeda from [employer]. Review of Systems Const All systems reviewed & are unremarkable except as noted in HPI and below Card Denies chest pain at rest, Denies chest pain with activity, Denies edema, Denies irregular heart rhythm, Denies claudication, Denies dyspnea, Denies dyspnea on exertion, Denies orthopnea, Denies paroxysmal nocturnal dyspnea and Denies slow heart rate Resp Denies cough, Denies dyspnea and Denies dyspnea on exertion GI Denies abdominal pain, Denies change in bowel habits, Denies excessive flatus, Denies nausea and Denies vomiting Denies urinary incontinence, Denies urinary hesitancy and Denies urinary urgency Musc Denies abnormal gait, Denies atrophy, Denies deformity and Denies limited range of motion Skin/Breast Denies bleeding lesions, Denies changing lesions and Denies rash Neuro Denies abnormal gait, Denies behavioral changes and Denies lack of coordination Psych Denies behavioral changes Physical exam (Primary Care) Vital Signs: Last Vital Signs BP 122/70 02/01/24 15:16 BMI result Body Mass Index 43.8 Tobacco/Smoking Status: Tobacco use Status Tobacco use date assessed 11/23/23 02/01/24 15:19 Patient Tobacco Use Status Never used Tobacco 02/01/24 15:19 e-Cigarette/Vaping Use Never Used 02/01/24 15:19 PHQ-9: PHQ-9 Score PHQ-9: Total score 0 02/01/24 15:19 Depression Screening Interpretation: Negative Thrive Assessment: Date of Thrive Assessment Date Thrive assessed 11/23/23 02/01/24 15:19 HENMT Head: Yes normal to inspection, Yes normocephalic and Yes atraumatic Ears: external ears normal Eyes General: appearance normal, both eyes and all related structures Eyelids: Yes eyelids normal Conjunctivae: conjunctivae normal Neck Neck: Yes normal visual inspection and Yes supple Resp Effort & Inspection: normal respiratory effort Auscultation: clear to auscultation bilaterally Cardio Jugular venous distension: no JVD Rate: regular rate Rhythm: regular rhythm Heart sounds: S1 normal heart sound present and S2 normal heart sound present GI Inspection: Yes normal to inspection Palpation (GI): Soft to palpation and nontender Auscultation: normal bowel sounds Skin General skin exam: no rashes or lesions noted Neuro General: no focal motor deficits Extrem General: Yes full ROM Psych Appearance: grossly normal Assessment and Plan Assessment & Plan (1) Physical exam: Code(s): Z00.00 - Encounter for general adult medical examination without abnormal findings Plan: Repeat in a year. (2) Morbid obesity due to excess calories: Code(s): E66.01 - Morbid (severe) obesity due to excess calories Plan: Start diet and exercise. BMI goal is less than 30. Coding Level of Care Code Est Pt Prev Care 18-39y(57854) Diagnoses Physical exam Z00.00 Morbid obesity due to excess calories E66.01 Time Spent (min) 31
[2024-02-01 15:16] VITALS: BP 122/70; BMI 43.8
== END 2024-02-01 15:32 | disposition home or self-care (01) ==
PROVIDERS: PCP Internal Medicine; Visit Provider Internal Medicine
DX: Z00.00 Encounter for general adult medical examination without abnormal findings (principal); E66.01 Morbid (severe) obesity due to excess calories; Z68.41 Body mass index [BMI] 40.0-44.9, adult
CPT/HCPCS: 99395

== ENCOUNTER 2024-02-27 15:16 | Outpatient (AMB) | payer MEDICAID, SELFPAY ==
--- NOTE | 2024-02-27 15:41 | A.OFFVIS_ITS ---
Vital Signs 02/27/24 15:42 Height 4 ft 11 in Weight 217 lb BMI 43.8 Intake Visit Reasons: 6 mo f/u Intake Note: Patient presents for 6 month follow up Allergies No Known Allergies [No Known Allergies*] Allergy (Verified 02/27/24 15:45) Medication List - Last Reconciled 02/27/24 by BRANDO Joseph ascorbic acid (vitamin C) 250 mg PO BID 30 days cholecalciferol (vitamin D3) 50 mcg PO DAILY 90 days ferrous sulfate 325 mg PO BID 90 days magnesium oxide 400 mg PO BEDTIME 30 days meclizine 25 mg PO DAILY PRN medroxyprogesterone 10 mg PO DAILY naproxen 500 mg PO BID PRN riboflavin (vitamin B2) 400 mg PO DAILY 30 days sumatriptan succinate 50 - 100 mg orally at onset of headache, may repeat in 2 hrs PRN; max 2 tabs per day or 4 tabs/week (may take with Ibuprofen) 30 days HPI Comments Details: 38-yr-old female presents for f/u visit. Pt endorses the following interval medical history changes: October 2023, ER eval for acute tx of menorrhagia. Since, she is doing better overall. Pt reports she is having 1 migraine days per week. 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 Using most of migraine meds just prn. Sumatriptan helps when she takes it. She is hopeful to start a family. Baseline migraine w/o aura headache characteristics: Mod-Severe Bi-frontal pounding pain a/w photophobia, blurry vision, phonophobia, mild osmophobia (however since she had Covid-19 2 yrs ago- her sense of smell has decreased), nausea, room spinning dizziness, fatigue, some brain fog. Pt reports restlessness is better. She is better about taking her iron and Vit C. [facility] Medical History Migraines Pa-George anastomosis Anemia Migraines Food intolerance Carpal tunnel syndrome Hand pain Physical exam Hand numbness Constipation by delayed colonic transit Chest wall pain Morbid obesity with BMI of 40.0-44.9, adult Polyarthralgia Hypovitaminosis D Pure hypercholesterolemia Iron deficiency anemia Vertigo Surgical History History of D&C Hx laparoscopic cholecystectomy Family History Father No problems noted. Mother No problems noted. Maternal Grandmother Diabetes Maternal Grandfather Stomach cancer Maternal Uncle Renal cancer Social History Housing: House Alcohol intake: never Patient Tobacco Use Status: Never used Tobacco e-Cigarette/Vaping Use: Never Used Second Hand Smoke Exposure: No service: No Current occupational status: employed Current occupational exposures/hazards: No Cognitive needs: No Hearing needs: No Vision needs: No Female Reproductive History Menstrual Age of Menarche: 13 Physical Exam Vital Signs: BMI result Body Mass Index 43.8 Const General: cooperative and no acute distress Orientation/consciousness: patient oriented x3 Resp Effort & Inspection: normal respiratory effort and able to speak in complete sentences Neuro General: patient oriented x3 Cranial nerves: Yes CN's II-XII intact bilaterally Cognition (Neuro): normal cognition Psych Appearance: grossly normal Mental Status: mental status grossly normal Speech and movement: Normal speech and movement present Affect: normal affect Attitude: cooperative Assessment & Plan Assessment & Plan (1) Migraines: Code(s): G43.909 - Migraine, unspecified, not intractable, without status migrainosus Category: Medical Qualifiers: Migraine type: migraine (< 15 days per month) without aura Intractability: not intractable Status migrainosus presence: without status migrainosus Qualified Code(s): G43.009 - Migraine without aura, not intractable, without status migrainosus (2) Periodic limb movements of sleep: Code(s): G47.61 - Periodic limb movement disorder Category: Medical (3) Iron deficiency anemia: Code(s): D50.9 - Iron deficiency anemia, unspecified Category: Medical Qualifiers: Iron deficiency anemia type: inadequate dietary iron intake Qualified Code(s): D50.8 - Other iron deficiency anemias Plan For PLMS, RLS: Recheck CBC, iron studies. Continue ferrous sulfate and vit c. ? ?For overall headache management: Continue optimizing good self-care, including but not limited to maintaining a healthy diet, adequate fluid intake, adequate sleep, and engaging in regular physical activity. For headache triggers: Track headaches. ? For acute headache treatment: Continue Sumatriptan 100mg tab, 1/2 - 1 tab (50-100mg) at onset of headache, may repeat in 2 hours. Max of 2 tabs (200mg) per 24 hours. May adjunct with OTC Tylenol 650mg q 4 hours, Ibuprofen 600mg q 6 hours, or Naproxen 440mg q 12 hrs prn. Previous acute migraine medication trials: OTC Tylenol and Ibuprofen. Acute migraine medication contraindications: None at this time. ? For headache prevention medication: Continue Riboflavin 400mg qam Continue Magnesium 400mg qhs Previous migraine prevention medication trials: Amitriptyline 25mg- ineffective. Migraine prevention medication contraindications: Topiramate to 50mg qhs- as pt hopes to become . ? Pt to follow-up in 6 months or sooner prn. Orders: Orders Complete Blood Count Auto Diff Today D64.9 - Anemia, unspecified Ferritin Today D64.9 - Anemia, unspecified IRON PROFILE Today D64.9 - Anemia, unspecified Vitamin D 25-OH (D2 and D3) Today D64.9 - Anemia, unspecified Medications: Changed From magnesium oxide may hold for loose stools 400 mg PO BEDTIME 30 days 30 tabs 6RF To magnesium oxide may hold for loose stools 400 mg PO BEDTIME 90 days 90 tabs 3RF From riboflavin (vitamin B2) 400 mg PO DAILY 30 days 30 tabs 6RF To riboflavin (vitamin B2) 400 mg PO DAILY 90 days 90 tabs 3RF Refilled sumatriptan succinate (0.5 - 1 x 100 mg) 50 - 100 mg orally at onset of headache, may repeat in 2 hrs PRN; max 2 tabs per day or 4 tabs/week (may take with Ibuprofen) 30 days 12 tabs 6RF migraine headache Coding Level of Care Code Est Pt Level 4 (52472) Diagnoses Migraine without aura and without status migrainosus, not intractable G43.009 Migraine type: migraine (< 15 days per month) without aura Intractability: not intractable Status migrainosus presence: without status migrainosus Periodic limb movements of sleep G47.61 Iron deficiency anemia due to chronic blood loss D50.8 Iron deficiency anemia type: inadequate dietary iron intake
[2024-02-27 15:42] VITALS: BMI 43.8
== END 2024-02-27 16:18 | disposition home or self-care (01) ==
PROVIDERS: PCP Internal Medicine; Visit Provider Nurse Practitioner Family
DX: G43.009 Migraine without aura, not intractable, without status migrainosus (principal); G47.61 Periodic limb movement disorder; D50.8 Other iron deficiency anemias
CPT/HCPCS: 99214

== ENCOUNTER → 2024-02-27 15:16 | Outpatient (BNVA) | payer MEDICAID, SELFPAY | PROVIDERS: PCP Internal Medicine; Visit Provider Nurse Practitioner Family | DX: G43.009 Migraine without aura, not intractable, without status migrainosus (principal); G47.61 Periodic limb movement disorder; D50.8 Other iron deficiency anemias | CPT/HCPCS: 99212 ==

== ENCOUNTER 2024-03-26 17:56 | Emergency (ER) | payer OTHER, SELFPAY ==
--- NOTE | ~2024-03-26 | XR_ITS ---
EXAMINATION: XR LUMBOSACRAL SPINE CLINICAL INFORMATION: Low back pain COMPARISON: None available. TECHNIQUE: Three views of the lumbosacral spine. FINDINGS: There is some mild disc space narrowing at L4-L5 and L5-S1. Vertebral body heights are maintained. The remainder of the disc spaces are well-maintained aside from some mild degenerative changes in the lower thoracic spine. XR/XR lumbar spine 2-3V IMPRESSION: Mild degenerative changes in the lower lumbar spine. Electronically signed by: Michael Jones MD 03/26/2024 08:25 PM EDT
[2024-03-26 18:06] VITALS: BP 141/79; PULSE 84; RESP 16; TEMP 36.1; O2SAT 100; BMI 42.3
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
[2024-03-26 22:34] VITALS: BP 141/79; PULSE 84; RESP 16; TEMP 36.1; O2SAT 100
== END 2024-03-26 22:35 | disposition home or self-care (01) ==
PROVIDERS: Emergency Provider Internal Medicine; PCP Internal Medicine
DX: S16.1XXA Strain of muscle, fascia and tendon at neck level, initial encounter (principal); S39.012A Strain of muscle, fascia and tendon of lower back, initial encounter; V43.52XA Car driver injured in collision with other type car in traffic accident, initial encounter; Y93.89 Activity, other specified; Y92.414 Local residential or business street as the place of occurrence of the external cause; Y99.9 Unspecified external cause status
CPT/HCPCS: 72100; 99282; 99283

== ENCOUNTER 2024-04-04 15:46 | Outpatient (AMB) | payer OTHER, SELFPAY ==
[2024-04-04 16:01] VITALS: BP 126/80; BMI 42.2
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
== END 2024-04-04 16:37 | disposition home or self-care (01) ==
PROVIDERS: PCP Internal Medicine; Visit Provider Internal Medicine
DX: M54.2 Cervicalgia (principal); M54.50 Low back pain, unspecified

== ENCOUNTER → 2024-04-04 15:46 | Outpatient (BNVA) | payer OTHER, SELFPAY | PROVIDERS: PCP Internal Medicine; Visit Provider Internal Medicine | DX: M54.2 Cervicalgia (principal); M54.50 Low back pain, unspecified; Z23 Encounter for immunization | CPT/HCPCS: 90471; 90656 ==

== ENCOUNTER 2024-10-09 12:51 | Outpatient (AMB) | payer OTHER, SELFPAY ==
--- NOTE | 2024-10-09 12:53 | A.OFFVIS_ITS ---
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 Healthcare Management: Healthcare Management Present (Vonda) Accompanied by: Self / Same As Patient Allergies No Known Allergies [No Known Allergies*] Allergy (Verified 10/09/24 13:07) Medication List - Last Reconciled 10/09/24 by Lauren Ocampo CNM ascorbic acid (vitamin C) 250 mg PO BID 30 days cholecalciferol (vitamin D3) 50 mcg PO DAILY 90 days cyclobenzaprine 5 mg PO TID PRN ferrous sulfate 325 mg PO BID 90 days magnesium oxide 400 mg PO BEDTIME 90 days meclizine 25 mg PO DAILY PRN medroxyprogesterone 10 mg PO DAILY naproxen 500 mg PO BID PRN riboflavin (vitamin B2) 400 mg PO DAILY 90 days sumatriptan succinate 50 - 100 mg orally at onset of headache, may repeat in 2 hrs PRN; max 2 tabs per day or 4 tabs/week (may take with Ibuprofen) 30 days Is last menstrual period known: Yes Last menstrual period: 09/05/24 Post menopausal: No Patient : No HPI 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 She has been getting her regular periods she had a little Provera left over from when she was given it in the emergency room last year for bleeding and she took it to delay her. Because she was going on a cruise in July but other than that alteration in the schedule her periods are regular. She says she sees her primary care provider regularly and she does not have any medical problems and does not have pre diabetes. She does not use contraception she has been years. If she got she would have the baby and be happy. Her son is 20 years old delivered in [place] vaginally. At the very end of the visit after the visit was over she inquired about some bumps in her groin area that had been there few months more in her right groin that appear flesh colored she does have a pumpman and I recommend that she have a consultation with the pumpman [facility] Medical History (Updated 10/09/24 @ 14:05 by Lauren Ocampo CNM) Morbid obesity with BMI of 40.0-44.9, adult Migraines Pa-George anastomosis Anemia Migraines Food intolerance Carpal tunnel syndrome Hand pain Physical exam Hand numbness Constipation by delayed colonic transit Chest wall pain Polyarthralgia Hypovitaminosis D Pure hypercholesterolemia Iron deficiency anemia Vertigo Surgical History History of D&C Hx laparoscopic cholecystectomy Family History Father No problems noted. Mother No problems noted. Maternal Grandmother Diabetes Maternal Grandfather Stomach cancer Maternal Uncle Renal cancer Maternal Aunt Breast cancer Paternal Aunt Breast cancer Social History Housing: House Alcohol intake: never Patient Tobacco Use Status: Never used Tobacco e-Cigarette/Vaping Use: Never Used Second Hand Smoke Exposure: No service: No Current occupational status: employed Current occupational exposures/hazards: No Cognitive needs: No Hearing needs: No Vision needs: No Female Reproductive History Menstrual Age of Menarche: 13 Duration of menses: 3-5 days Date of last menstrual period: 09/05/24 control method: none Total pregnancies: 1 Full term: 1 Date of last pap smear: 06/29/23 (negative pap smear, negative hpv) History of abnormal pap smear: No Date of Mammogram: 08/08/24 (bi rad 1) Physical Exam Vital Signs: Last Vital Signs BP 112/72 10/09/24 13:03 BMI result Body Mass Index 43.4 Const General: healthy appearing, comfortable, no acute distress, well developed and alert Nutritional Appearance: average body habitus and obese Orientation/consciousness: patient oriented x3 Limitations: no limitations HEENT Head: Yes normocephalic Neck Neck: Yes normal visual inspection Chest Chest palpation & inspection: normal inspection of the chest Breast/axilla inspection: normal inspection of the breasts and normal inspection of the axillae Breast/axilla palpation: normal palpation of the breasts and normal palpation of the axillae Resp Effort & Inspection: normal respiratory effort GI Inspection: Yes normal to inspection, No Abdominal wall edema and No distended Palpation (GI): Soft to palpation and nontender Other: External vulva appears within normal limits. No lesions visible. Vagina is pink and moist multiparous cervix pink moist normal-appearing mucus no abnorm ality patient had no concerns whatsoever about STIs and declined any testing Pap smear done last year was negative with negative HPV so Pap not done. After the visit was over patient inquired about bumps that she has in her groin area that are completely obscured by adipose tissue and reapproximating body parts.(abdomen and thigh and overhanging mons pubis). I suggested she speak with pumpman about getting a diagnosis for these. General: Yes bladder normal to palpation External Female Exam: normal external appearance and normal appearance of the urethra Speculum Exam - Vagina: normal appearance of the vagina, normal palpation and normal vaginal discharge Speculum Exam - Cervix: normal appearance of the cervix, normal palpation and nontender Bimanual exam- vagina & uterus: normal bimanual exam, normal palpation, uterine size normal, bladder normal to palpation, consistency normal, normal palpation, uterine mobility normal, uterine shape normal, No Cervical tenderness present, non-tender and no cervical motion tenderness Bimanual Exam- Adnexa, other: normal adnexae, no masses, normal and No adnexal tenderness Neuro General: patient oriented x3 Assessment & Plan Assessment & Plan (1) Hx of abnormal cervical Pap smear: Comment: ROBY 2019, bx done neg pap done 11/04/21= neg, w neg hpv; 06/29/2022 Pap is negative with negative HPV, abundant inflammation. Code(s): Z87.42 - Personal history of other diseases of the female genital tract Category: Medical (2) Morbid obesity due to excess calories: Code(s): E66.01 - Morbid (severe) obesity due to excess calories Category: Medical (3) Morbid obesity with BMI of 40.0-44.9, adult: Code(s): E66.01 - Morbid (severe) obesity due to excess calories; Z68.41 - Body mass index [BMI] 40.0-44.9, adult Category: Medical (4) Encounter for gynecological examination: Code(s): Z01.419 - Encounter for gynecological examination (general) (routine) without abnormal findings Category: Medical Plan -----Discussed in this visit the following: healthy balanced diet, regular and consistent exercise, getting recommended health screens, doing the best she can for her particular health concerns, kegel exercises, pap smear screening and followup recommendations, mammography screening and SBE, normal changes in cycles in her life stage--- . Since her last 2 Pap smears were completely normal she did not need a Pap smear at this visit. A next 1 would be in 4 years. Discussed her menses periods she said that they are coming regular now she only used the left over Provera because she wanted to time her period So it would not be there when she was on a cruise. She says she has had no bleeding since the episode last year.. I suggested that it would be helpful for her overall health if she really try and work on losing weight this spring as she has gained more weight and especially if she is considering being open to a which she is it would benefit her greatly to lose weight beforehand. Coding Level of Care Code Est Pt Prev Care [id number]([id number]) Diagnoses Hx of abnormal cervical Pap smear Z87.42 Morbid obesity due to excess calories E66.01 Morbid obesity with BMI of 40.0-44.9, adult E66.01; Z68.41 Encounter for gynecological examination Z01.419
[2024-10-09 13:03] VITALS: BP 112/72; BMI 43.4
--- OUTSIDE RECORDS SUMMARY | 2024-10-09 15:12 | XMS_ITS | Clinical Summary ---
Author Organization [facility] it Address [address] [place] [address] Care Team Providers Care Linderman Machine Operator Name Role Phone Isiah Santo MD Primary Care Provider [phone] Surgical History Surgery Date Site/Laterality Comments CHOLECYSTECTOMY 2014 PROCEDURE: LAPAROSCOPY, CHOLECYSTECTOMY Medical History Medical History Date Comments Anemia DX:Anemia Heavy menses DX:Heavy menses; COMMENT: occasional dysmenorrhea Vertigo 2018 DX:Vertigo Abnormal Pap smear of cervix DX: Abnormal Pap smear of cervix; COMMENT: s/p colpo and negative repeat Social History Tobacco Use Types Packs/Day Years Used Date Smoking Tobacco: Never Smokeless Tobacco: Never Alcohol Use Standard Drinks/Week Comments Not Currently 0 (1 standard drink = 0.6 oz pur e alcohol) Comments Unknown Sex and Gender Information Value Date Recorded Sex Assigned at Not on file Legal Sex Female 3:34 PM EST Gender Identity Not on file Sexual Orientation Not on file Obstetrics History Last Filed Vital Signs Vital Sign Reading Time Taken Comments Blood Pressure 108/70 11/21/2023 10:49 AM EDT Pulse 68 11/21/2023 10:49 AM EDT Temperature - - Respiratory Rate - - Oxygen Saturation - - Inhaled Oxygen Concentration - - Weight 101 kg (222 lb) 11/21/2023 10:49 AM EDT Height 149.9 cm (4' 11 ) 11/21/2023 10:49 AM EDT Body Mass Index 44.84 11/21/2023 10:49 AM EDT Plan of Treatment Health Maintenance Due Date Last Done Comments DTaP,Tdap,and Td Vaccines (1 - Tdap) 2004 Hepatitis B Vaccines (1 of 3 - 19+ 3-dose series) 2004 Cervical Cancer Screening: P ap Smear 2006 Depression Screening 05/25/2022 HIV Screening 05/25/2022 Hepatitis C Screening 05/25/2022 Social Influencers of Health Screening 05/25/2022 COVID-19 Vaccine (2023-2 5 season) 2024 Influenza Vaccine (Season Ended) 2025 HIB Vaccines Aged Out No longer eligi ble based on patient's age to complete this topic HPV Vaccines Aged Out No longer eligi ble based on patient's age to complete this topic Hepatitis A Vaccines Aged Out No long er eligible based on patient's age to complete this topic IPV Vaccines Aged Out No longer eligi ble based on patient's age to complete this topic MMR Vaccines Aged Out No longer eligi ble based on patient's age to complete this topic Meningococcal ACWY Vaccine Aged Out N o longer eligible based on patient's age to complete this topic Meningococcal B Vaccine Aged Out No l onger eligible based on patient's age to complete this topic Pneumococcal Vaccine: Pediat rics (0 to 5 Years) and At-Risk Patients (6 to 64 Years) Aged Out No longer eligible b ased on patient's age to complete this topic RSV Immunization Patients Un michelle 20 months Aged Out No longer eligible b ased on patient's age to complete this topic Varicella Vaccines Aged Out No longer eligible based on patient's age to complete this topic Care Teams Linderman Machine Operator Relationship Specialty Start Date End Date Isiah Santo MD [address] [place] [address] [facility] 2[address] Floor [place], [place] PCP - General 04/08/14
--- OUTSIDE RECORDS SUMMARY | 2024-10-09 15:12 | XMS_ITS | Clinical Summary ---
Author Organization [employer] Address [address] [place] [address] [address] [place] [address] Care Team Providers Care Technical Services Consultant Name Role Phone Unavailable Primary Care Provider Unavailabl e Allergies No known active allergies Medications D3 Super Strength 50 MCG (1999 UT) capsule Take 1 capsule by mouth Once per day. 11/23/2023 Active cyclobenzaprine (Flexeril) 5 MG tablet take 1 tablet by mouth 3 times a day as needed for muscle spasm 03/26/2024 Active ferrous sulfate 325 (65 Fe) MG tablet Take 1 tablet by mouth every other day. 10/30/2023 Active medroxyPROGESTE Moshe (Provera) 10 MG tablet Take 1 tablet by mouth Once per day. 01/15/2024 Active riboflavin (Vitamin B-2) 400 MG tablet Take 1 tablet by mouth Once per day. 11/23/2023 Active tranexamic acid (Lysteda) 650 MG tablet tablet Take 2 tablets by mouth every 6 (six) hours during the day. 10/30/2023 Active Active Problems No known active problems Encounters Date Type Department Care Team Description 10/02/2024 8:00 AM EDT Office Visit [facility] [address] [place] [address] Bobbi Nichole, DDS Fractured dental restorative material (Primary Dx) 09/02/2024 9:30 AM EDT Office Visit [facility] [address] [place] [address] Weiss-Rodírguez Bobbi, DDS Fractured dental baptist with loss of material (Primary Dx) from Last 3 Months Social History Tobacco Use Types Packs/Day Years Used Date Smoking Tobacco: Never Smokeless Tobacco: Never Tobacco Cessation:Counseling Given: Not Answered Alcohol Use Standard Drinks/Week Comments Never 0 (1 standard drink = 0.6 oz pur e alcohol) Comments Unknown Sex and Gender Information Value Date Recorded Sex Assigned at Female 04/25/2022 10:27 AM EDT Legal Sex Female 10:27 AM EDT Gender Identity Female 08/29/2024 12:30 PM EST Sexual Orientation Choose not to disclose 2024 12:30 PM EST Last Filed Vital Signs Vital Sign Reading Time Taken Comments Blood Pressure 142/70 10/02/2024 8:13 AM EDT Pulse - - Temperature - - Respiratory Rate - - Oxygen Saturation - - Inhaled Oxygen Concentration - - Weight - - Height - - Body Mass Index - - Plan of Treatment Upcoming Encounters Date Type Department Care Team (Late st Contact Info) Description 01/15/2025 8:00 AM EDT Office Visit [facility] [address] [place] [address] Kathrine Barraza Health Maintenance Due Date Last Done Comments Depression Screening 1985 HIV Screening 1985 SDOH Screening 1985 Alcohol/Substance Use Screening 1997 Family Planning (PISQ) 2000 Hepatitis C Screening 12/26/2003 DTaP/Tdap/Td Vaccines (1 - Tdap) 2004 Hepatitis B Vaccines (1 of 3 - 19+ 3-dose series) 2004 Pap Smear 2006 Cervical Cancer Screening 12/26/2015 HPV/Cotest 12/26/2015 Dental Oral Exam 12/14/2017 06/14/2017 Dental Prophylaxis 07/27/2018 01/23/2018, 07/25/2017 Dental X-Ray: Full Mouth 06/15/2020 06/14/2017 COVID-19 Vaccine ( - 2023-2 5 season) 2024 Dental X-Ray: Bitewings 09/03/2025 09/03/19, 06/14/2017 Tobacco Screening 10/02/2025 10/02/2024 Zoster Vaccines (1 of 2) 12/26/2035 RSV Patients and Patients Aged 60 years or older (1 - 1-dose 75+ series) 2060 Influenza Vaccine Completed 04/04/2024, 06/13/2021 HIB Vaccines Aged Out No longer eligi [...] patient's age to complete this topic Meningococcal Vaccine Aged Out No rosita vi eligible based on patient's age to complete this topic Pneumococcal Vaccine: Pediatrics (0 to 5 Years) and At-Risk Patients (6 to 49) Years) Aged Out No longer eligible b ased on patient's age to complete this topic RSV under 20 months Aged Out No longe r eligible based on patient's age to complete this topic Rotavirus Vaccines Aged Out No longer eligible based on patient's age to complete this topic Procedures Procedure Name Priority Date/Time Associated Diagnosis Comments CASE PRESENTATION, DETAILED AND EXTENSIVE TREATMENT PLANNING Routine 10/02/2024 8:00 AM EDT 31 O RESIN-BASED COMPOSITE - 1 SURF, POSTERIOR Routine 10/02/2024 8:00 AM EDT CASE PRESENTATION, DETAILED AND EXTENSIVE TREATMENT PLANNING Routine 09/02/2024 9:30 AM EDT Fractured dental baptist with loss of material BITEWING - SINGLE RADIOGRAPHIC IMAGE Routine 09/02/2024 9:30 AM EDT Fractured dental baptist with loss of material INTRAORAL - PERIAPICAL FIRST RADIOGRAPHIC IMAGE Routine 09/02/2024 9:30 AM EDT Fractured dental baptist with loss of material LIMITED ORAL EVALUATION - PROBLEM FOCUSED Routine 09/02/2024 9:30 AM EDT Fractured dental baptist with loss of material PROPHYLAXIS - ADULT Routine 01/23/2018 1 2:00 AM EDT INTRAORAL - COMPLETE SERIES OF RADIOGRAPHIC IMAGES Routine 06/14/2017 12:00 AM EST COMPREHENSIVE ORAL EVALUATION - NEW OR ESTABLISHED PATIENT Routine 06/14/2017 12:00 AM EST from Last 3 Months or Most Recently Relevant to Health Maintenance Insurance [facility] D[facility]AL - HSN PARTIAL (MEDICAID)
== END 2024-10-09 14:06 | disposition home or self-care (01) ==
LOC: HO.HWSM 12:51
PROVIDERS: PCP Internal Medicine; Visit Provider Advanced Practice Midwife
DX: Z01.419 Encounter for gynecological examination (general) (routine) without abnormal findings (principal); Z87.42 Personal history of other diseases of the female genital tract; E66.01 Morbid (severe) obesity due to excess calories; Z68.41 Body mass index [BMI] 40.0-44.9, adult
CPT/HCPCS: 99395; 99459

== ENCOUNTER → 2024-10-09 12:51 | Outpatient (BNVA) | payer OTHER, SELFPAY | PROVIDERS: PCP Internal Medicine; Visit Provider Advanced Practice Midwife | DX: Z01.419 Encounter for gynecological examination (general) (routine) without abnormal findings (principal); E66.01 Morbid (severe) obesity due to excess calories; Z87.42 Personal history of other diseases of the female genital tract; Z68.41 Body mass index [BMI] 40.0-44.9, adult | CPT/HCPCS: 99395; 99459 ==

== ENCOUNTER 2025-02-11 16:27 | Outpatient (AMB) | payer OTHER, SELFPAY ==
[2025-02-11 16:30] VITALS: BP 122/64; PULSE 73; RESP 18; O2SAT 98; BMI 43.5
--- NOTE | 2025-02-11 16:30 | A.OFFPC_ITS ---
Vital Signs 02/11/25 16:30 Height 4 ft 11 in Weight 215 lb 6 oz BMI 43.5 BP 122/64 Blood Pressure Location Lt brachial Position Sitting Respiration 18 Pulse 73 Pulse Source Pulse Oximeter Temp Source Temporal Artery Scan Pulse Oximetry (%) 98 Oxygen Delivery Method Room Air Intake Visit Reasons: annual Medical Transcription Radiology Required: No Accompanied by: Self / Same As Patient Allergies No Known Allergies (No Known Allergies*) Allergy (Verified 02/11/25 16:48) Medication List - Last Reconciled 02/11/25 by Carri Whitfield MD ascorbic acid (vitamin C) 250 mg PO BID 30 days cholecalciferol (vitamin D3) 50 mcg PO DAILY 90 days cyclobenzaprine 5 mg PO TID PRN ferrous sulfate 325 mg PO BID 90 days magnesium oxide 400 mg PO BEDTIME 90 days meclizine 25 mg PO DAILY PRN medroxyprogesterone 10 mg PO DAILY naproxen 500 mg PO BID PRN riboflavin (vitamin B2) 400 mg PO DAILY 90 days sumatriptan succinate 50 - 100 mg orally at onset of headache, may repeat in 2 hrs PRN; max 2 tabs per day or 4 tabs/week (may take with Ibuprofen) 30 days Tobacco use date assessed: 02/11/25 Dental Screening Dental Screen Date: 02/11/25 Did you have a dental visit in the last 12 months?: Yes Did you have a dental problem in the last 6 months where you did not have access to dental care?: No Was dental information given to patient?: Patient has dentist HPI HPI Comments History of Present Illness Details The patient is a 39-year-old female presenting for her physical exam. The back pain began after an accident, and the patient underwent physical therapy for three months. She continues to perform exercises at home as instructed by her therapist. The patient is considering chiropractic treatment and has been advised to consult pain management for further relief. The dizziness is managed with glycine supplementation. The patient also experiences migraines, for which she takes sumatriptan as needed. She is currently taking vitamin B2 as part of her migraine management plan. The patient has no history of smoking or alcohol use. Her parents are alive and do not suffer from any known medical conditions. [facility] Medical History (Updated 02/11/25 @ 16:59 by Carri Whitfield MD) Morbid obesity with BMI of 40.0-44.9, adult Migraines Pa-George anastomosis Anemia Migraines Food intolerance Carpal tunnel syndrome Hand pain Physical exam Hand numbness Constipation by delayed colonic transit Chest wall pain Polyarthralgia Hypovitaminosis D Pure hypercholesterolemia Iron deficiency anemia Vertigo Surgical History History of D&C Hx laparoscopic cholecystectomy Family History Father No problems noted. Mother No problems noted. Maternal Grandmother Diabetes Maternal Grandfather Stomach cancer Maternal Uncle Renal cancer Maternal Aunt Breast cancer Paternal Aunt Breast cancer Social History Housing: House Alcohol intake: never Patient Tobacco Use Status: Never used Tobacco e-Cigarette/Vaping Use: Never Used Second Hand Smoke Exposure: No service: No Current occupational status: employed Current occupational exposures/hazards: No Cognitive needs: No Hearing needs: No Vision needs: No Female Reproductive History Menstrual Age of Menarche: 13 Questionnaire PHQ-9 Over the last 2 weeks, how often have you been bothered by any of the following problems? 1. Little interest or pleasure in doing things: not at all 2. Feeling down, depressed, or hopeless: not at all 3. Trouble falling or staying asleep, or sleeping too much: not at all 4. Feeling tired or having little energy: several days 5. Poor appetite or overeating: not at all 6. Feeling bad about yourself - or that you are a failure or have let yourself or your family down: not at all 7. Trouble concentrating on things, such as reading the newspaper or watching television: not at all 8. Moving or speaking so slowly that other people could have noticed. Or the opposite - being so fidgety or restless that you have been moving around a lot more than usual: not at all 9. Thoughts that you would be better off or of hurting yourself in some way: not at all Total score: 1 Depression Screening Interpretation: Negative Depression Screening Done: Yes 79723 - PHQ-9 Billing: Yes Source: Developed by Drs. Gibran Matos, Shari Miller, Oscar Layton and colleagues, with an educational makeda from [employer]. Thrive Questionnaire Date Thrive assessed: 02/11/25 I am a: Patient What is your living situation today?: I have a steady place to live Within the past 12 months, did the food you bought not last and you didn't have the money to get more?: Never true Within the past 12 months, did you worry whether your food would run out before you got money to buy more?: Never true Do you have trouble paying for medicines?: No Do you have trouble getting transportation to medical appointments?: No Do you have trouble paying your heating and electricity bill?: No Do you have trouble taking care of your child, family member or friend?: No Do you have trouble with day-to-day activities such as bathing, preparing meals, shopping, managing finances, etc.?: No Are you currently unemployed and looking for a job?: No Are you interested in more education?: No Please select the resources that you would like help with: None Currently or been in a relationship where the following occur: No concerns reported THRIVE Score: 0 AUDIT C Alcohol Use Questionnaire (AUDIT-C) 1. How often do you have a drink containing alcohol?: Never 3. How often do you have six or more drinks on one occasion?: Never Total Score: 0 ANIBAL-7 AMB Questionnaire ANIBAL-7 Date ANIBAL - 7 assessed: 02/11/25 Feeling nervous, anxious, or on edge: 0 = Not at all Not being able to stop or control worryin = Not at all Worrying too much about different things: 0 = Not at all Trouble relaxin = Not at all Being so restless that it is hard to sit still: 0 = Not at all Becoming easily annoyed or irritable: 0 = Not at all Feeling afraid as if something awful might happen: 0 = Not at all Total ANIBAL-7 score (0-4 normal; 5-9 mild; 10-14 moderate; 15-21 severe): 0 Source: Developed by Drs. Gibran Matos, Shari Miller, Oscar Layton and colleagues, with an educational makeda from [employer]. ANIBAL-7 Assessment Billing ANIBAL-7 Assessment Tool: ANIBAL-7 Assessment 38870 Review of Systems Const All systems reviewed & are unremarkable except as noted in HPI and below Card Denies chest pain at rest, Denies chest pain with activity, Denies edema, Denies irregular heart rhythm, Denies claudication, Denies dyspnea, Denies dyspnea on exertion, Denies orthopnea, Denies paroxysmal nocturnal dyspnea and Denies slow heart rate Resp Denies cough, Denies dyspnea and Denies dyspnea on exertion GI Denies abdominal pain, Denies change in bowel habits, Denies excessive flatus, Denies nausea and Denies vomiting Denies urinary incontinence, Denies urinary hesitancy and Denies urinary urgency Musc Denies atrophy, Denies deformity and Denies limited range of motion Physical exam (Primary Care) Vital Signs: Last Vital Signs Pulse 73 02/11/25 16:30 Resp 18 02/11/25 16:30 BP 122/64 02/11/25 16:30 Pulse Ox 98 02/11/25 16:30 Oxygen Delivery Method Room Air 02/11/25 16:30 BMI result Body Mass Index 43.5 BMI Assessment/Plan discussion: High BMI High, discussed plan: lifestyle, weight reduction, dietary and physical activity Tobacco/Smoking Status: Tobacco use Status Tobacco use date assessed 02/11/25 02/11/25 16:37 Patient Tobacco Use Status Never used Tobacco 02/11/25 16:37 e-Cigarette/Vaping Use Never Used 02/11/25 16:37 PHQ-9: PHQ-9 Score PHQ-9: Total score 1 02/11/25 16:52 Depression Screening Interpretation: Negative Thrive Assessment: Date of Thrive Assessment Date Thrive assessed 02/11/25 02/11/25 16:37 Currently or been in a relationship where the following occur: No concerns reported Const Orientation/consciousness: patient oriented x3 HENCA Head: Yes normal to inspection, Yes normocephalic and Yes atraumatic Ears: external ears normal Eyes General: appearance normal, both eyes and all related structures Eyelids: Yes eyelids normal Conjunctivae: conjunctivae normal Neck Neck: Yes normal visual inspection and Yes supple Resp Effort & Inspection: normal respiratory effort Auscultation: clear to auscultation bilaterally Cardio Jugular venous distension: no JVD Rate: regular rate Rhythm: regular rhythm Heart sounds: S1 normal heart sound present and S2 normal heart sound present GI Inspection: Yes normal to inspection Palpation (GI): Soft to palpation and nontender Auscultation: normal bowel sounds Skin General skin exam: no rashes or lesions noted Neuro General: patient oriented x3 and no focal motor deficits Extrem General: Yes full ROM Psych Appearance: grossly normal Coding Level of Care Code Est Pt Level 3 (79655) Est Pt Prev Care 18-39y(17421) Diagnoses Physical exam Z00.00 Lumbar pain M54.50 Morbid obesity with BMI of 40.0-44.9, adult E66.01; Z68.41 Additional Codes ANIBAL-7 Assessment Billing - ANIBAL-7 Assessment Tool: ANIBAL-7 Assessment 17976 ([id number]) PHQ-9 - 95120 - PHQ-9 Billing: Yes ([id number]) Time Spent (min) 34 Assessment & Plan Assessment & Plan (1) Physical exam: Code(s): Z00.00 - Encounter for general adult medical examination without abnormal findings Category: Medical (2) Lumbar pain: Code(s): M54.50 - Low back pain, unspecified Category: Medical (3) Morbid obesity with BMI of 40.0-44.9, adult: Code(s): E66.01 - Morbid (severe) obesity due to excess calories; Z68.41 - Body mass index [BMI] 40.0-44.9, adult Category: Medical Plan The patient is advised to continue home exercises for back pain management and consider direct care provider as an adjunct therapy. Referral to pain management is recommended for potential interventions to alleviate pain. For dizziness, the patient should continue glycine supplementation and monitor symptoms. For migraine management, the patient is to continue using sumatriptan as needed and maintain vitamin B2 supplementation. Patient was informed and verbally consented to the use of an ambient scribe for clinic note documentation during this visit. Orders: Orders Lipid Panel Today E78.5 - Hyperlipidemia, unspecified IRON PROFILE Today D64.9 - Anemia, unspecified Vitamin D 25-OH Total Today E55.9 - Vitamin D deficiency, unspecified Comprehensive Hiko. Panel Fast Today Z00.00 - Encounter for general adult medical examination without abnormal findings Complete Blood Count Auto Diff Today D64.9 - Anemia, unspecified Referrals Pain Management Referral M54.50 - Low back pain, unspecified
--- OUTSIDE RECORDS SUMMARY | 2025-02-11 17:43 | XMS_ITS | Clinical Summary ---
Author Organization [employer] Address [address] [place] [address] [address] [place] [address] Care Team Providers Care Air Export Coordinator Name Role Phone Unavailable Primary Care Provider [...] Encounters Date Type Department Care Team Description 01/13/2025 9:30 AM EDT Office Visit [facility] [address] [place], [place] [phone] Jayy Jason DMD 12/31/2024 8:45 AM EDT Office Visit [facility] [address] [place], [place] [id number] Loly Wynn 12/30/2024 Travel 12/04/2024 Telephone [facility] [address] [place] [address] Barraza, Kathrine from Last 3 Months Social History Tobacco [...] Sign Reading Time Taken Comments Blood Pressure 122/72 12/31/2024 9:04 AM EDT Pulse 76 12/31/2024 9:04 AM EDT Temperature - - Respiratory Rate - - Oxygen Saturation - - Inhaled Oxygen Concentration - - Weight - - Height - - Body Mass Index - - Plan of Treatment Upcoming Encounters Date Type Department Care Team (Late st Contact Info) Description 07/17/2025 8:00 AM EST Office Visit [facility] [address] [place] [address] Kathrine Barraza Health Maintenance Due Date Last Done Comments Depression Screening 1985 HIV Screening 1985 SDOH Screening 1985 Disability Screening 1985 Alcohol/Substance Use Screening 1997 Family Planning (PISQ) 2000 HPV Vaccines (1 - 3-dose series) 2000 Hepatitis C Screening 12/26/2003 DTaP/Tdap/Td Vaccines (1 - Tdap) 2004 Hepatitis B Vaccines (1 of 3 - 19+ 3-dose series) 2004 Pap Smear 2006 Cervical Cancer Screening 12/26/2015 HPV/Cotest 12/26/2015 Dental X-Ray: Full Mouth 06/15/2020 06/14/2017 COVID-19 Vaccine ( - 2023-2 5 season) 2024 Influenza Vaccine (#1) 2025 , 06/13/2021 Dental Oral Exam 07/04/2025 12/31/2024, 06/14/2017 Dental Prophylaxis 07/04/2025 12/31/2024, 01/23/2018, 07/25/2017 Dental X-Ray: Bitewings 01/01/2026 01/01/20 25, 09/02/2024, 06/14/2017 Tobacco Screening 01/13/2026 01/13/2025 Zoster Vaccines (1 of 2) 12/26/2035 RSV Patients and Patients Aged 60 years or older (1 - 1-dose 75+ series) 2060 HIB Vaccines Aged Out No longer eligi [...] Years) and At-Risk Patients (6 to 49) Years Aged Out No longer eligible b ased on patient's age to complete this topic RSV under 20 months Aged Out No longe r eligible based on patient's age to complete this topic Rotavirus Vaccines Aged Out No longer eligible based on patient's age to complete this topic Procedures Procedure Name Priority Date/Time Associated Diagnosis Comments CASE PRESENTATION, DETAILED AND EXTENSIVE TREATMENT PLANNING Routine 01/13/2025 9:30 AM EDT 19 MO RESIN-BASED COMPOSITE - 2 SURF, POSTERIOR Routine 01/13/2025 9:30 AM EDT PERIODIC ORAL EVALUATION - ESTABLISHED PATIENT Routine 12/31/2024 8:45 AM EDT CASE PRESENTATION, DETAILED AND EXTENSIVE TREATMENT PLANNING Routine 12/31/2024 8:45 AM EDT INTRAORAL - PERIAPICAL EACH ADDITIONAL RADIOGRAPHIC IMAGE Routine 12/31/2024 8:45 AM EDT INTRAORAL - PERIAPICAL FIRST RADIOGRAPHIC IMAGE Routine 12/31/2024 8:45 AM EDT BITEWINGS - 4 RADIOGRAPHIC IMAGES Routine 12/31/2024 8:45 AM EDT PROPHYLAXIS - ADULT Routine 12/31/2024 8 :45 AM EDT INTRAORAL - COMPLETE SERIES OF RADIOGRAPHIC IMAGES Routine 06/14/2017 12:00 AM EST from Last 3 Months or Most Recently Relevant to Health Maintenance Insurance [facility] - HSN PARTIAL (MEDICAID)
--- OUTSIDE RECORDS SUMMARY | 2025-02-11 17:43 | XMS_ITS | Clinical Summary ---
Author Organization [facility] it Address [address] [place] [address] Care Team Providers Care Environmental Control Administrator Name Role Phone Isiah Santo MD Primary Care Provider [phone] Surgical History Surgery Date Site/Laterality Comments CHOLECYSTECTOMY [...] Cervical Cancer Screening: P ap Smear 2006 HIV Screening 05/25/2022 Hepatitis C Screening 05/25/2022 Social Influencers of Health Screening 05/25/2022 COVID-19 Vaccine (1 - 2023-2 5 season) 2024 Depression Screening 06/26/2024 Influenza Vaccine (#1) 2025 HIB Vaccines Aged Out No longer [...] 5 Years) and At-Risk Patients (6 to 49 Years) Aged Out No longer eligible b ased on patient's age to complete this topic RSV Immunization Patients Un michelle 20 months Aged Out No longer eligible b ased on patient's age to complete this topic Varicella Vaccines Aged Out No longer eligible based on patient's age to complete this topic Care Teams Environmental Control Administrator Relationship Specialty Start Date End Date Isiah Santo MD [address] [place] [address] [facility] 2[address] Floor [place], [place] PCP - General 04/08/14
== END 2025-02-11 17:00 | disposition home or self-care (01) ==
LOC: HO.HMCH 16:28
PROVIDERS: PCP Internal Medicine; Visit Provider Internal Medicine
DX: Z00.00 Encounter for general adult medical examination without abnormal findings (principal); M54.50 Low back pain, unspecified; E66.01 Morbid (severe) obesity due to excess calories; Z68.41 Body mass index [BMI] 40.0-44.9, adult

== ENCOUNTER → 2025-02-11 16:27 | Outpatient (BNVA) | payer OTHER, SELFPAY | PROVIDERS: PCP Internal Medicine; Visit Provider Internal Medicine | DX: Z00.00 Encounter for general adult medical examination without abnormal findings (principal); M54.50 Low back pain, unspecified; E66.01 Morbid (severe) obesity due to excess calories; E78.5 Hyperlipidemia, unspecified; D64.9 Anemia, unspecified; E55.9 Vitamin D deficiency, unspecified; Z68.41 Body mass index [BMI] 40.0-44.9, adult | CPT/HCPCS: 96127; 99212; 99395 ==

== ENCOUNTER 2025-03-22 09:37 | Outpatient (REF) | payer OTHER, SELFPAY ==
--- OUTSIDE RECORDS SUMMARY | 2025-03-22 09:40 | XMS_ITS | Clinical Summary ---
Author Organization [employer] Address [address] [place] [address] [address] [place] [address] Care Team Providers Care Jig Bore Tool Maker Name Role Phone Unavailable Primary Care Provider [...] Description 01/13/2025 9:30 AM EDT Office Visit [facility] [address] [place] [address] Jayy Jason DMD 12/31/2024 8:45 AM EDT Office Visit [facility] [address] [place] [address] Loly Wynn 12/30/2024 Travel from Last 3 Months Social History Tobacco [...] Description 07/17/2025 8:00 AM EST Office Visit [facility] [address] [place] [address] Kathrine Barraza Health Maintenance Due Date Last [...] COVID-19 Vaccine ( - 2023-2 5 season) 2025 Influenza Vaccine (#1) 2025 , 06/13/2021 Dental [...] Most Recently Relevant to Health Maintenance [place] [address] DENTAL - HSN PARTIAL (MEDICAID)
--- OUTSIDE RECORDS SUMMARY | 2025-03-22 09:40 | XMS_ITS | Clinical Summary ---
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
[2025-03-22 10:17] LABS: MANUAL DIFF FLAG NO
[2025-03-22 11:35] LABS: Hematocrit 37.3 % (37.0-47.0); Hemoglobin 12.0 g/dl (12.0-16.0); Imm Gran Abs Auto 0.01 X10*3/uL (0.00-0.03); Imm Gran Pct Auto 0.2 % (0.0-0.4); Lymphocytes Absolute Auto 2.2 X10*3/uL (1.2-4.9); Mean Corpuscular HGB Conc 32.2 g/dl (31.0-35.0); Mean Corpuscular Hemoglobin 25.6 pg (27.0-33.0); Mean Corpuscular Volume 79.5 fL (80.0-98.0); NRBC Abs Auto 0.000 X10*3/uL (0.0-0.012); NRBC Pct Auto 0.0 /100WBC (0.0-0.2); Platelet Count 336 X10*3/uL (160-400); Red Blood Count 4.69 X10*6/uL (4.20-5.50); White Blood Count 5.9 X10*3/uL (4.8-10.8)
[2025-03-22 12:15] LABS: Alanine Aminotransferase 20 U/L (0-31); Albumin Level 4.1 g/dL (3.5-5.0); Alkaline Phosphatase 63 U/L (39-117); Anion Gap 9 (12-20); Aspartate Amino Transferase 19 U/L (5-31); Blood Urea Nitrogen 16 mg/dL (9-16); Calcium 9.4 mg/dL (8.4-10.2); Carbon Dioxide 26 mmol/L (22-29); Chloride 108 mmol/L (96-108); Cholesterol 220 mg/dL (<200); Estimated Glomerular Filt Rate > 60; HDL Cholesterol 43 mg/dL (>40); Iron 81 mcg/dL (30-160); Percent Iron Saturation 24 % (15-50); Potassium 4.0 mmol/L (3.3-5.1); Sodium 139 mmol/L (135-145); Total Iron Binding Capacity 335 mcg/dL (228-428); Total Protein 7.5 g/dL (6.5-8.0); Triglycerides 113 mg/dL (<150); Unsaturated Iron Binding 254 ug/dL
== END 2025-03-22 09:38 | disposition home or self-care (01) ==
LOC: HO.LAB 09:37
PROVIDERS: PCP Internal Medicine; Visit Provider Internal Medicine
DX: Z00.00 Encounter for general adult medical examination without abnormal findings (principal); E78.5 Hyperlipidemia, unspecified; D64.9 Anemia, unspecified; E55.9 Vitamin D deficiency, unspecified
CPT/HCPCS: 36415; 80053; 80061; 82306; 83540; 85025

== ENCOUNTER 2025-04-14 15:25 | Outpatient (AMB) | payer OTHER, SELFPAY ==
--- NOTE | 2025-04-14 15:51 | AM.OFFWIN_ITS ---
Intake Vital Signs 04/14/25 16:02 Height 4 ft 11 in Weight 221 lb 6 oz BMI 44.7 BP 120/68 Blood Pressure Location Lt brachial Position Sitting Pulse 95 Pulse Source Pulse Oximeter Temp 98.2 F Temp Source Oral Pulse Oximetry (%) 99 Intake Visit Reasons: EP-headaches, cough, ribs [phone] Intake Note: Pt is here today c/o H/A, cough and rib pain started yesterday Patient Tobacco Use Status: Never used Tobacco Allergies No Known Allergies (No Known Allergies*) Allergy (Verified 04/14/25 15:53) Do you need a note to return to daycare/school/sports/work: Yes HPI HPI Comments History of Present Illness Details History - The patient is a 39-year-old female pr esenting with a cough, rib pain, nasal congestion, and shortness of breath. - The cough began yesterday and is produ ctive with phlegm. - Rib pain was noted after feeling a pop ping sensation on the side, causing significant discomfort. - Nasal congestion has been present, and the patient has not taken any decongestants. - The patient experiences shortness of b reath when coughing but has no history of asthma. - The patient has not received a flu sujit t this year but did receive one last year. 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 - She is not a smoker. - She denies fever, chills, abd pain, n/ v/d, RAMACHANDRAN, ear pain or sore throat. Physical Exam General: Cooperative, healthy appearing, comfortable and no acute distress Orientation/consciousness: Patient oriented x3 Limitations: No limitations Head: Heavy head reported Ears: Hearing grossly normal bilaterally, external ears normal and TM's normal bilaterally Nose: Congested, runny nose present Face and sinus: Sinuses nontender to palpation. Mouth: Normal oral and palatal mucosa present and moist mucous membranes noted. Throat: Tonsils normal. Uvula is midline. Posterior oropharynx with erythema and no exudates. Eyes: Appearance normal, both eyes and all related structures Neck: Normal visual inspection, full ROM. No lymphadenopathy noted. Respiratory: Clear to auscultation bilaterally with scattered wheezes noted. Normal respiratory effort, able to speak in complete sentences. No respiratory distress, not tachypneic, no tripod positioning and no use of accessory muscles. Cardiovascular: Regular rate and rhythm. Normal S1 and S2 Skin: No rashes or lesions noted Patient was informed and verbally consented to the use of an ambient scribe for clinic note documentation during this visit [facility] Medical History Morbid obesity with BMI of 40.0-44.9, adult Migraines Pa-George anastomosis Anemia Migraines Food intolerance Carpal tunnel syndrome Hand pain Physical exam Hand numbness Constipation by delayed colonic transit Chest wall pain Polyarthralgia Hypovitaminosis D Pure hypercholesterolemia Iron deficiency anemia Vertigo Surgical History History of D&C Hx laparoscopic cholecystectomy Family History Father No problems noted. Mother No problems noted. Maternal Grandmother Diabetes Maternal Grandfather Stomach cancer Maternal Uncle Renal cancer Maternal Aunt Breast cancer Paternal Aunt Breast cancer Social History Housing: House Alcohol intake: never Patient Tobacco Use Status: Never used Tobacco e-Cigarette/Vaping Use: Never Used Second Hand Smoke Exposure: No service: No Current occupational status: employed Current occupational exposures/hazards: No Cognitive needs: No Hearing needs: No Vision needs: No Female Reproductive History Menstrual Age of Menarche: 13 Physical Exam Vital Signs: Last Vital Signs Temp 98.2 F 04/14/25 16:02 Pulse 95 04/14/25 16:02 BP 120/68 04/14/25 16:02 Pulse Ox 99 04/14/25 16:02 BMI result Body Mass Index 44.7 Results Reviewed Results Reviewed: will review the CXR Assessment & Plan Assessment & Plan (1) Cough: Code(s): R05.9 - Cough, unspecified Qualifiers: Cough type: acute Qualified Code(s): R05.1 - Acute cough Plan Most likely URI vs viral illness vs covid vs flu plan - Order chest x-ray to rule out pneumonia. - will order a resp panel - Prescribe medications for symptom relief, including decongestants. - Prescribe decongestants for symptom relief - Monitor symptoms and follow up with results of diagnostic tests. - will call with the results - follow up with PCP Orders: Orders XR chest 2V Today R05.9 - Cough, unspecified Resp Pathogen Panel - [facility] [place] J06.9 - Acute upper respiratory infection, unspecified Medications: New benzonatate 100 mg PO bid-tid PRN 21 caps 0RF Cough 7 days cetirizine-pseudoephedrine 5-120 mg ER 1 tab PO BID 14 tabs 0RF 7 days albuterol sulfate 90 mcg/actuation 2 puffs inhalation Q6H PRN 8.5 grams 0RF shortness of breath or wheezing or cough fluticasone propionate 50 mcg/actuation administer into each nostril 1 spray intranasal Q12H 16 grams 0RF Coding Level of Care Code Est Pt Level 4 (48772) Diagnoses Acute cough R05.1 Cough type: acute
[2025-04-14 16:02] VITALS: BP 120/68; PULSE 95; TEMP 36.8; O2SAT 99; BMI 44.7
--- OUTSIDE RECORDS SUMMARY | 2025-04-14 19:40 | XMS_ITS | Clinical Summary ---
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 Name Role Phone Unavailable Primary Care Provider [...] Description 01/13/2025 9:30 AM EDT Office Visit [facility] [address] [place] [address] Jayy Jason DMD from Last 3 Months Social History Tobacco [...] Description 07/17/2025 8:00 AM EST Office Visit [facility] [address] [place] [address] Kathrine Barraza Health Maintenance Due Date Last [...] X-Ray: Full Mouth 06/15/2020 06/14/2017 COVID-19 Vaccine (1 - 2023-2 5 season) 2025 Influenza Vaccine (#1) 2025 4, 06/13/2021 Dental Oral Exam 07/04/2025 12/31/2024, 06/14/2017 Dental Prophylaxis 07/04/2025 12/31/2024, 01/23/2018, 07/25/2017 Dental X-Ray: Bitewings 01/01/2026 01/01/20, 09/02/2024, 06/14/2017 Tobacco Screening 01/13/2026 01/13/2025 Zoster [...] SURF, POSTERIOR Routine 01/13/2025 9:30 AM EDT PROPHYLAXIS - ADULT Routine 12/31/2024 8 :45 AM EDT BITEWINGS - 4 RADIOGRAPHIC IMAGES Routine 12/31/2024 8:45 AM EDT PERIODIC ORAL EVALUATION - ESTABLISHED PATIENT Routine 12/31/2024 8:45 AM EDT INTRAORAL - COMPLETE SERIES OF RADIOGRAPHIC IMAGES Routine 06/14/2017 12:00 AM EST from Last 3 Months or Most Recently Relevant to Health Maintenance Insurance [facility] D[facility] - HSN PARTIAL (MEDICAID)
== END 2025-04-14 16:36 | disposition home or self-care (01) ==
PROVIDERS: PCP Internal Medicine; Visit Provider Physician Assistant Medical
DX: R05.1 Acute cough (principal)

== ENCOUNTER 2025-04-14 15:25 | Outpatient (REF) | payer OTHER, SELFPAY ==
[2025-04-15 12:50] LABS: Chlamydia pneumoniae PCR Not Detected (Not Detect.); Coronavirus 229E PCR Not Detected (Not Detect.); Coronavirus HKU1 PCR Not Detected (Not Detect.); Coronavirus NL63 PCR Not Detected (Not Detect.); Coronavirus OC43 PCR Not Detected (Not Detect.); RSV PCR Not Detected (Not Detect.); Rhino/Enterovirus PCR Detected (Not Detect.)
[2025-04-15 13:02] LABS: Influenza A H1 PCR Not Detected (Not Detect.); Influenza A H1-2009 PCR Not Detected (Not Detect.); Influenza A H3 PCR Not Detected (Not Detect.); SARS-CoV-2 PCR Not Detected (Not Detect.)
== END 2025-04-14 15:26 | disposition home or self-care (01) ==
LOC: HO.LNP 15:25
PROVIDERS: PCP Internal Medicine; Visit Provider Physician Assistant Medical
DX: R05.1 Acute cough (principal); R07.89 Other chest pain; R09.81 Nasal congestion; R06.02 Shortness of breath; R05.9 Cough, unspecified
CPT/HCPCS: 87633; 99212

== ENCOUNTER 2025-04-15 11:04 | Outpatient (REF) | payer OTHER, SELFPAY ==
--- NOTE | ~2025-04-15 | XR_ITS ---
EXAMINATION: XR CHEST 2 VIEWS HISTORY: R05.9 - Cough, unspecified COMPARISON: Comparison is made with the prior examination dated 03/10/2021. FINDINGS: PA and lateral views of the chest are submitted. The lungs are expanded and clear. There is no pleural effusion, pneumothorax, or pulmonary vascular congestion. The heart is normal in size. There is mild degenerative disc disease of the spine. XR/XR chest 2V IMPRESSION: No acute cardiopulmonary abnormality. Electronically signed by: Gibran Hernandez MD 04/15/2025 11:19 AM EDT
== END 2025-04-15 11:05 | disposition home or self-care (01) ==
LOC: HO.HMGCX 11:04
PROVIDERS: PCP Internal Medicine; Visit Provider Physician Assistant Medical
DX: R05.9 Cough, unspecified (principal)
CPT/HCPCS: 71046

== ENCOUNTER → 2025-04-15 11:07 | Outpatient (BNV) | payer OTHER, SELFPAY | PROVIDERS: PCP Internal Medicine; Visit Provider Radiology Diagnostic Radiology | DX: R05.9 Cough, unspecified (principal) | CPT/HCPCS: 71046 ==